=== PATIENT | male | born 1970 | race Caucasian/White ===

== ENCOUNTER 2019-04-05 11:10 | Emergency (ER) | payer MEDICARE ==
[~2019-04-05] VITALS: Ht 203.2 cm; Wt 200.0 kg
[2019-04-05 11:14] VITALS: Ht 203.2 cm; Wt 200.0 kg
[2019-04-05] MEDS ORDERED: STOOL SOFTENER100 M1 PO (11:16)
[2019-04-05] MEDS ORDERED: BETAPACE 80 MG80 MG PO ×2 (11:17→14:02)
[2019-04-05] MEDS ORDERED: UNKNOWN BP MED (11:17)
[2019-04-05 11:49] LABS: BASOPHILS 0.1 % (0-2); EOSINOPHILS 0.1 % (0-7); HEMATOCRIT 40.5 % (42.0-54.0); HEMOGLOBIN 14.8 g/dL (13.5-17.5); IMMATURE GRANULOCYTES 0.5 % (0-5); LYMPHOCYTES 15.1 % (15-50); MCH 30.7 pg (26.0-34.0); MCHC 36.5 g/dL (31.0-37.0); MEAN PLATELET VOLUME 8.7 fL (7.4-10.4); NEUTROPHILS 77.2 % (40-80); PLATELET COUNT 257 10x3/uL (130-400); RBC 4.82 10x6/uL (4.20-6.10); RDW 13.7 % (11.5-14.5); WBC 8.9 10x3/uL (4.8-10.8)
[2019-04-05 12:00] LABS: INR 1.07 (0.85-1.17); PROTIME 13.4 SECONDS (11.6-15.0)
[2019-04-05 12:01] LABS: ALBUMIN 3.9 g/dL (3.4-5.0); ALKALINE PHOSPHATASE 72 U/L (46-116); ALT (SGPT) 21 U/L (10-68); APTT 25.9 SECONDS (22.8-39.4); BILIRUBIN - TOTAL 0.36 mg/dL (0.2-1.3); CALC OSMOLALITY 273 mosm/kg (275-300); CALCIUM 9.7 mg/dL (8.5-10.1); CHLORIDE - SERUM 96 mmol/L (98-107); CREATININE - SERUM 0.9 mg/dL (0.6-1.3); GLUCOSE 120 mg/dL (74-106); POTASSIUM - SERUM 4.1 mmol/L (3.5-5.1); PROTEIN - SERUM 7.7 g/dL (6.4-8.2); SODIUM 136 mmol/L (136-145); UREA NITROGEN 14 mg/dL (7-18); eGFR NON AFRICAN AMERICAN > 90 mL/min (90-120)
[2019-04-05 12:12] LABS: AMYLASE - SERUM 46 U/L (25-115); CKMB 1.1 U/L (0.0-3.6); CREATINE KINASE 62 UL (21-232); LIPASE 144 U/L (73-393); MAGNESIUM - SERUM 1.4 mg/dL (1.8-2.4); TROPONIN-I < 0.017 ng/mL (0.000-0.060)
[2019-04-05 12:27] LABS: APPEARANCE CLEAR (CLEAR); BILIRUBIN NEGATIVE (NEGATIVE); COLOR YELLOW (YELLOW); GLUCOSE NEGATIVE (NEGATIVE); KETONE NEGATIVE (NEGATIVE); NITRITE NEGATIVE (NEGATIVE); PROTEIN NEGATIVE (NEGATIVE); UROBILINOGEN NORMAL (NORMAL)
[2019-04-05] MEDS ORDERED: ATIVAN1 MG PO (13:58)
[2019-04-05] MEDS ORDERED: REGLAN5 MG PO ×2 (13:59→14:00)
[2019-04-05] MEDS ORDERED: CARBATROL100 MG PO (14:00)
[2019-04-05] MEDS ORDERED: ZESTRIL10 MG PO (14:00)
[2019-04-05] MEDS ORDERED: SINGULAIR10 MG PO (14:01)
[2019-04-05] MEDS ORDERED: SEROQUEL50 MG PO (14:01)
[2019-04-05] MEDS ORDERED: PROTONIX40 MG PO (14:01)
[2019-04-05] MEDS ORDERED: PHENERGAN25 MG RC (16:18)
[2019-04-05] MEDS ORDERED: ZOFRAN ODT4 MG/UDTAB PO (16:18)
[2019-04-05 17:27] VITALS: BP 142/87
== END 2019-04-05 17:27 | disposition home or self-care (01) ==
LOC: D.ER 11:10
PROVIDERS: Family Medicine
DX: K31.84 Gastroparesis (principal); F17.210 Nicotine dependence, cigarettes, uncomplicated; F32.9 Major depressive disorder, single episode, unspecified; I48.91 Unspecified atrial fibrillation; I10 Essential (primary) hypertension; K29.70 Gastritis, unspecified, without bleeding; F12.988 Cannabis use, unspecified with other cannabis-induced disorder

== ENCOUNTER 2020-01-23 18:00 | Inpatient (IN) | payer MEDICARE ==
[~2020-01-23] VITALS: Ht 203.2 cm; Wt 195.0 kg
[~2020-01-23 18:00] MED LIST: ATIVAN1 MG PO; BETAPACE 80 MG80 MG PO; CARBATROL100 MG PO; PHENERGAN25 MG RC; PROTONIX40 MG PO; REGLAN5 MG PO; SEROQUEL50 MG PO; SINGULAIR10 MG PO; STOOL SOFTENER100 M1 PO; UNKNOWN BP MED; ZESTRIL10 MG PO; ZOFRAN ODT4 MG/UDTAB PO
[2020-01-23 18:36] VITALS: BP 135/86; BMI 47.3
--- NOTE | 2020-01-23 19:15 | NUR ---
PT LYING IN BED VERY TEARFUL AT THIS TIME. PT IS WORRIED ABOUT DRAIN AND " JUST GETTING A BREATH" HE STATES BEING IN PAIN BUT OUR MEDICATION THAT CHI SENT OVER IS NOT TOUCHING HIS PAIN. ANTON PAGED DR CUNNINGHAM AND LEFT VOICEMAIL CONCERNING PATIENTS NEEDS. BILIARY DRAIN INTACT DRAINING FLUID AT THIS TIME. CL IN REACH. DENIES FURTHER NEEDS AT THIS TIME. WILL CONTINUE TO MONITOR.
[2020-01-23 21:38] VITALS: BP 135/86
--- NOTE | 2020-01-24 02:15 | NUR ---
PT HTML WEB DEVELOPER LIGHT AND STATED HE COULD NOT MAKE IT TO TOILET AND NEEDS BEDPAN. PT PLACED ON BEDPAN. LOOSE WATERY DIARRHEA IN BEDPAN. PT CLEANED UP. DENIES FURTHER NEEDS. CL IN REACH. WCTM
[2020-01-24] MEDS ORDERED: ALBUTEROL SULF8.5 GM INH (02:51)
[2020-01-24] MEDS ORDERED: PRISTIQ100 MG PO (02:51)
[2020-01-24] MEDS ORDERED: VALIUM10 MG PO (02:52)
[2020-01-24] MEDS ORDERED: GABAPENTIN300 MG PO (02:52)
[2020-01-24] MEDS ORDERED: FLORAJEN3 CAPS460 MG PO (02:53)
[2020-01-24] MEDS ORDERED: TORADOL10 MG PO (02:53)
[2020-01-24] MEDS ORDERED: NITROQUICK0.4 MG SL (02:55)
[2020-01-24] MEDS ORDERED: CREON DR 24,001 EACH PO (02:55)
[2020-01-24] MEDS ORDERED: MAG-OX 400 MG400 MG PO (02:55)
[2020-01-24] MEDS ORDERED: PROPRANOLOL HCL20 MG PO (02:56)
[2020-01-24] MEDS ORDERED: ULTRAM50 MG PO (02:56)
[2020-01-24] MEDS ORDERED: ZONISAMIDE50 MG PO (02:57)
--- NOTE | 2020-01-24 04:45 | NUR ---
PT GUIDE DOG TRAINER LIGHT ASSISTED TO BATHROOM. PT STAND BY ASSIST AND PT HAD ANOTHER DIARRHEA. PT BACK IN BED. CL IN REACH. TM
--- NOTE | 2020-01-24 06:01 | NUR ---
FLUSHED BILIARY DRAIN. 200ML EMPTIED
[2020-01-24 08:00] VITALS: BP 123/84
[2020-01-24 09:01] LABS: HEMATOCRIT 37.1 % (42.0-54.0); HEMOGLOBIN 12.5 g/dL (13.5-17.5); LYMPHOCYTES 14.5 % (15-50); MCH 31.2 pg (26.0-34.0); MCHC 33.7 g/dL (31.0-37.0); MCV 92.5 fL (80.0-100.0); MEAN PLATELET VOLUME 8.4 fL (7.4-10.4); NEUTROPHILS 73.1 % (40-80); PLATELET COUNT 248 10x3/uL (130-400); RBC 4.01 10x6/uL (4.20-6.10); RDW 14.9 % (11.5-14.5); WBC 7.4 10x3/uL (4.8-10.8)
[2020-01-24 09:09] LABS: CALC OSMOLALITY 258 mosm/kg (275-300); CALCIUM 9.1 mg/dL (8.5-10.1); CHLORIDE - SERUM 97 mmol/L (98-107); CREATININE - SERUM 0.8 mg/dL (0.6-1.3); GLUCOSE 108 mg/dL (74-106); POTASSIUM - SERUM 4.3 mmol/L (3.5-5.1); SODIUM 129 mmol/L (136-145); UREA NITROGEN 9 mg/dL (7-18); eGFR NON AFRICAN AMERICAN > 90 mL/min (90-120)
--- NOTE | 2020-01-24 12:04 | NUR ---
PATIENT ADMITTED TO REHAB FROM AN OUTSIDE FACILITY. DR. JOSEPH GRAYSON IS HIS PCP. DISCHARGE PLANS ARE FOR HIM TO RETURN HOME WILL CONTINUE TO FOLLOW WITH PATIENT.
[2020-01-24 15:20] VITALS: BMI 47.2
--- NOTE | 2020-01-24 19:15 | NUR ---
BEDSIDE REPORT COMPLETE. PT SITTING UP IN BED WATCHING TV. DENIES ANY NEEDS. C/O ABDOMINAL DISCOMFORT PAIN MEDICATION WAS ADMININSTERED BY DAY SHIFT RN. PANCREATIC DRAIN IN PLACE AND DRAINING. DRESSING INTACT. CALL LIGHT AND WATER WITHIN REACH. FALL PRECAUTIONS IN PLACE. CPOC
[2020-01-24 21:41] VITALS: BP 110/62
--- NOTE | 2020-01-25 02:38 | NUR ---
PT LYING IN BED SUPINE EYES CLOSED RESTING COMFORTABLY. HOB ELEVATED. RR EVEN AND UNLABORED. CALL LIGHT WITHIN REACH. FALL PRECAUTIONS IN PLACE. CPOC
--- NOTE | 2020-01-25 04:50 | NUR ---
REMOVED OLD BILIARY DRAIN DRESSING. CLEANSED AREA WITH WOUND CLEANSER, PAT DRY WITH 4X4, DRAIN GAUZE PLACED AND COVERED WITH TEGADERM. SECURED TUBING WITH TAPE. FLUSHED WITH 10ML NORMAL SALINE. PT TOLERATED WELL
--- NOTE | 2020-01-25 05:38 | NUR ---
PT LYING IN BED EYES CLOSED RESTING. RR EVEN AND UNLABORED. CALL LIGHT AND WATER WITHIN REACH. FALL PRECAUTIONS IN PLACE. CPOC
[2020-01-25 08:00] VITALS: BP 122/82
--- NOTE | 2020-01-25 19:43 | NUR ---
PT UP ON SIDE OF BED EATING DINNER, NO NEEDS NOTED, FLUIDS/CALL LIGHT WITHIN REACH
--- NOTE | 2020-01-26 00:32 | NUR ---
PATIENT REQUESTED TO SPEAK TO THIS CHARGE NURSE AND STATED THAT HE HAD REPORTED TO A NURSE YESTERDAY THAT HIS PAIN WAS NOT CONTROLLED DURING THERAPY, WHEN HE MADE HIS FIRST ATTEMPT TO USE HIS PROSTHETIC LEGS, AND THAT THE NIGHT BEFORE HE HAD PULLED/POPPED HIS BACK. HE SAID THE NURSE INFORMED HIM HE HAD TRAMADOL AND TORODOL PRN BESIDES THE NORCO BUT THAT KNEW THE TORODOL AND TRAMADOL WAS "A PLACEBO" AND INEFFECTIVE. HE ALSO STATED THAT BECAUSE OF HIS LARGE SIZE THAT HE FEELS LIKE HIS DOSE OF NORCO SHOULD BE INCREASED OR THE FREQUENCY INCREASED TO HELP CONTROL HIS PAIN. HE STATED HE DID NOT WANT [facility] BUT IF WE COULD, TO CALL HIM TOMORROW OR MONDAY. MESSAGE LEFT FOR DR CUNNINGHAM ON ROUNDING SHEET AND I WILL CALL HIM LATER THIS AM.
[2020-01-26 12:23] VITALS: BP 102/70
--- NOTE | 2020-01-26 15:00 | NUR ---
I have reviewed this patient and I concur with the Shift Assessment completed by the Licensed Practical Nurse today this shift.
--- NOTE | 2020-01-26 19:35 | NUR ---
RECEIVED PT SITTING UP IN BED AWAKE. ALERT AND ORIENTED X4. RR EVEN AND UNLABORED. BILIARY DRAIN DRESSING C/D/I. NO DRAINAGE IN BAG NOTED. DENIES ANY NEEDS OR PAIN. CALL LIGHT AND WATER WITHIN REACH. FALL PRECAUTIONS IN PLACE. CPOC
[2020-01-26 21:07] VITALS: BP 137/74
--- NOTE | 2020-01-27 00:11 | NUR ---
PT LYING IN BED AWAKE. DENIES ANY NEEDS. GENERALIZED DISCOMFORT VOICED. CALL LIGHT WITHIN REACH. FALL PRECAUTIONS IN PLACE. CPOC
--- NOTE | 2020-01-27 03:20 | NUR ---
PT LYING IN BED EYES CLOSED RESTING. RR EVEN AND UNLABORED. CALLL LIGHT WITHIN REACH. FALL PRECAUTIONS IN PLACE. CPOC
[2020-01-27 06:54] LABS: BASOPHILS 0.8 % (0-2); EOSINOPHILS 5.3 % (0-7); HEMATOCRIT 32.4 % (42.0-54.0); HEMOGLOBIN 10.6 g/dL (13.5-17.5); IMMATURE GRANULOCYTES 0.3 % (0-5); LYMPHOCYTES 25.3 % (15-50); MCH 30.7 pg (26.0-34.0); MCHC 32.7 g/dL (31.0-37.0); MCV 93.9 fL (80.0-100.0); MEAN PLATELET VOLUME 8.7 fL (7.4-10.4); MONOCYTES 17.1 % (2-11); NEUTROPHILS 51.2 % (40-80); RBC 3.45 10x6/uL (4.20-6.10); RDW 14.9 % (11.5-14.5)
[2020-01-27 06:55] LABS: PLATELET COUNT 193 10x3/uL (130-400)
[2020-01-27 07:16] LABS: ALKALINE PHOSPHATASE 60 U/L (30-120); ALT (SGPT) 16 U/L (10-68); AMYLASE - SERUM 27 U/L (25-115); BILIRUBIN - TOTAL 0.39 mg/dL (0.2-1.3); CALC OSMOLALITY 261 mosm/kg (275-300); CALCIUM 8.9 mg/dL (8.5-10.1); CARBON DIOXIDE 27.8 mmol/L (21.0-32.0); CHLORIDE - SERUM 99 mmol/L (98-107); CREATININE - SERUM 0.9 mg/dL (0.6-1.3); GLUCOSE 96 mg/dL (74-106); LIPASE 95 U/L (73-393); POTASSIUM - SERUM 3.9 mmol/L (3.5-5.1); PROTEIN - SERUM 6.3 g/dL (6.4-8.2); SODIUM 131 mmol/L (136-145); UREA NITROGEN 11 mg/dL (7-18); eGFR NON AFRICAN AMERICAN > 90 mL/min (90-120)
[2020-01-27 08:00] VITALS: BP 115/74
--- NOTE | 2020-01-27 08:04 | NUR ---
AWAKE AND ALERT UP IN BED, DENIES ANY NEEDS AT THIS TIME, C/L AND FLUIDS IN REACH.
--- NOTE | 2020-01-27 10:00 | NUR ---
ASSESSMENT COMPLETE, PRN PAIN MED GIVEN, DENEIS ANY OTHER NEEDS AT THIS TIME, C/L AND FLUIDS IN REACH.
--- NOTE | 2020-01-27 12:01 | NUR ---
UP IN W/C JUST FINISHED THERAPY, DENIES ANY NEEDS AT THIS TIME, C/L AND FLUIDS IN REACH.
--- NOTE | 2020-01-27 16:17 | NUR ---
SITTING UP IN BED WATCHING TV, PRN PAIN MED GIVEN PER PT. REQUEST, DENIES ANY OTHER NEEDS AT THIS TIME, C/L AND FLUIDS IN REACH.
--- NOTE | 2020-01-27 19:10 | NUR ---
PT SITTING UP IN BED EATING DINNER. CL IN REACH. DENIES NEEDS AT THIS TIME. BED IN LOW SIDE RAILS X3. LUNGS CLEAR. BOWEL ACTIVE X4. RESP EVEN AND UNLABORED. A/O X4. WILL CONTINUE TO MONITOR.
[2020-01-27 21:38] VITALS: BP 126/82
--- NOTE | 2020-01-28 07:57 | NUR ---
SITTING UP IN BED WATCHING TV, DENIES ANY NEEDS AT THIS TIME, C/L AND FLUIDS IN REACH.
[2020-01-28 08:18] VITALS: BP 125/86
--- NOTE | 2020-01-28 08:54 | RHP ---
PATIENT: ELIAS BOWEN MEDICAL RECORD: [id number] ACCOUNT: [id number] LOCATION:[facility]1112 : 66 ADMISSION DATE: 01/23/20 REHABILITATION HISTORY AND PHYSICAL EXAMINATION POST ADMISSION PHYSICIAN EXAMINATION ADMITTING DIAGNOSES: Debility secondary to muscular wasting and disuse atrophy, also needing bilateral [id number] amputated prosthetic training. HISTORY OF PRESENT ILLNESS: The patient is a 49-year-old gentleman who presented to ED with abdominal pain that radiated to his back, complaints of nausea, vomiting, and diarrhea that worsened over the previous week. He was admitted to the hospital on 01/12. He had abdominal CT that showed development of a 6.2 cm inoculated fluid collection at the left paracentral retroperitoneal area of his upper abdomen concerning for early abscess or possible pseudocyst. The patient also had some pancreatic fluid collection that was compatible with acute pancreatitis; however, consult was done, a left IR drain was placed in the CT in the peripancreatic region. On 01/12, he has been on IV antibiotics therapy with Merrem that will stay on until 01/16. The patient has a history of depression, degenerative joint disease, headaches, MRSA, rheumatoid arthritis, sleep apnea, chronic alcohol abuse, tobacco use. The patient has had bilateral BKAs. The patient apparently needs to be monitored very closely with IR for the drain and any signs of infection. He has got medication adjustments, we are monitoring his heart since he got a history of chronic atrial fibrillation. We are also watching his pain control, monitoring his I's and O's. He has got weakness, balance deficits, decreased activity tolerance, impaired mobility, decreased range of motion, decreased strength, gait disturbance, limited safety awareness. He is a risk for falls, he needs cues for equipment, he has got low endurance. He fatigues easily. Got inability to care for himself. These are all barriers to his discharge home at this time. He lives at home, was independent with his ADLs and mobility, using a wheelchair since getting his new prosthesis. He has got inability to properly those at this time. Currently set up for mod assist for ADLs and mod assist with his mobility and transfer into a chair. He plans to be able to return home at his prior level of functioning or better. COMORBIDITIES: Include weakness, abscess, IR drain, vwtmc-tj-mtzlbol pancreatitis, hyponatremia, hypomagnesemia, acute abdominal pain, chronic alcohol use, chronic AFib, hyperlipidemia, anxiety, depression, sleep apnea, rheumatoid arthritis, bilateral BKAs, history of head injury and tobacco use. PAST MEDICAL HISTORY: Significant for anxiety, arrhythmias, depression, degenerative joint disease, he has got a head injury in the past, headaches, hypertension, MRSA, sleep apnea, chronic alcohol use, VRE, tobacco use. PAST SURGICAL HISTORY: Includes bilateral BKAs, left hand surgery, elbow surgery, knee surgery and upper arm surgery. ALLERGIES: No known drug allergies. CURRENT MEDICATIONS: Include Floranex daily, he is on Zonegran 25 mg daily, he is on propranolol 20 mg daily, lisinopril 5 mg daily, Pristiq 100 mg daily, Zenpep 3 capsules t.i.d. with meals, Protonix 40 mg daily, sotalol 80 mg b.i.d., Mag-Ox 400 mg b.i.d., Neurontin 300 mg t.i.d., Tegretol 100 mg b.i.d. of the XR, tramadol 50 mg every 6 hours, Nitrostat p.r.n., albuterol updrafts as needed, HISTORY AND PHYSICAL [id number] ELIAS BOWEN Toradol 10 mg every 8 hours p.r.n. and Valium 10 mg every 8 hours p.r.n. spasms or problems. HABITS: No current alcohol or tobacco use here in the hospital. He does have a history of tobacco use and alcohol use at home. FAMILY HISTORY: Noncontributory. SOCIAL HISTORY: The patient hopes to return back home and get back to his prior level of functioning. REVIEW OF SYSTEMS: GENERAL: Does complain of weakness and fatigue. HEENT: Denies cold, cough, or congestion. CARDIOVASCULAR: Denies any chest pain. PHYSICAL EXAMINATION: VITAL SIGNS: Stable, afebrile. GENERAL: A morbidly obese gentleman in no acute distress upon exam. HEENT: Normocephalic and atraumatic. Mucosa moist. NECK: Supple. No lymphadenopathy. LUNGS: Clear at this time in upper mck[place]. HEART: Irregular rate and rhythm. ABDOMEN: Soft, benign, and nondistended. Positive bowel sounds times 4. EXTREMITIES: No clubbing, cyanosis. He does have noted bilateral below the knee amputations. NEUROLOGIC: Does have noted weakness. LABORATORY DATA: White count is 7.4, H&H of 12 and 37, and platelet count was noted to be 248. Sodium 129, potassium 4.3, BUN and creatinine of 9 and 0.8. Blood sugar is noted to be 108. ASSESSMENT: This is a 49-year-old gentleman admitted to the rehab with a working diagnosis of debility. The patient has potential to make improvement. We instituted the following multidisciplinary therapies include, but not limited to physical, occupational, respiratory, speech, nutritional services, prosthetics and orthotics. Given his complex medical condition and risks for more complications, rehabilitation services cannot be provided at a low level of care such as fpc facility. PLAN: 1. Admit to [facility] for inpatient therapy to include the following disciplines; A. Physical therapy to improve gait, all transfer skills and bed mobility to a modified independent level. B. Occupational therapy to improve activities of daily living. C. Case management help with discharge planning and placement options. D. Nutrition to assist with nutritional needs. E. Rehabilitation nursing to assist in monitoring the patient's underlying medical conditions and to assist with any type of bowel or bladder training. 2. We will continue on current medications as prescribed and I am going to watch his sodium level, we will adjust his lisinopril is needed. We follow up on his amylase and lipase, make sure no development of pancreatitis during his stay and I will see again in the a.m. HISTORY AND PHYSICAL [id number] BETTYKellyAlycia TRANSINT:[id number] Voice Confirmation ID: [id number] DOCUMENT ID: [id number] JESSICA notes whether there has been none or any medical/functional change since admission: - Pt's weight is 430#, Morbidly Obese. JESSICA attests patient continues to be appropriate for IRF: - Continues to be appropriate. JOB CUNNINGHAM MD at 0854 CC: [id number] DICTATION DATE: 01/24/20927 [employer]ILERS AND PRESS[employer] VESSELS INSPECTOR: 01/24/[address] [facility] [address] [place] [address]
--- NOTE | 2020-01-28 09:15 | NUR ---
ASSESSMENT COMPLETE, C/L AND FLUIDS IN REACH.
--- NOTE | 2020-01-28 11:06 | NUR ---
NUTRITION FOLLOW UP: INTERVIEW: Met with patient this am. He stated his appetite has been good. He denied recent N/V/D/C and denied recent chewing/swallowing issues. DIET: Regular Diet SUPPLEMENT: None PO INTAKE: 72% avg x 8 meals WEIGHT: 430 lbs on 01/23 with no recent wt changes BM: Stated BM this am (01/27) SIG LABS: 01/26- Na: 131(L), Albumin: 3.0(L) SIG MEDS: Protonix, Mag Ox Patient has been eating well. RD to continue to follow and monitor patient DHS
--- NOTE | 2020-01-28 12:11 | NUR ---
UP IN W/C BACK FROM THERAPY, DENIES ANY NEEDS AT THIS TIME, C/L AND FLUIDS IN REACH.
--- NOTE | 2020-01-28 16:19 | NUR ---
UP IN W/C, DENIES ANY NEEDS AT THIS TIME, C/L AND FLUIDS IN REACH.
--- NOTE | 2020-01-28 20:07 | NUR ---
RECIEVED BEDSIDE SHIFT REPORT. ALERT AND ORIENTED X4. UP WITH ASSIST. PROSTESIS AT BEDSIDE. OLD DBL BKA. BILLARY DRAIN IN PLACE WITH OFF WHITE DRAINAGE IN BAG. DENIES ANY NEEDS AT THIS TIME.
[2020-01-28 21:50] VITALS: BP 125/77
[2020-01-29 08:20] VITALS: BP 138/91
[2020-01-29 09:08] LABS: BASOPHILS 0.8 % (0-2); EOSINOPHILS 5.2 % (0-7); HEMATOCRIT 32.9 % (42.0-54.0); HEMOGLOBIN 10.7 g/dL (13.5-17.5); IMMATURE GRANULOCYTES 0.3 % (0-5); LYMPHOCYTES 14.9 % (15-50); MCH 30.7 pg (26.0-34.0); MCHC 32.5 g/dL (31.0-37.0); MCV 94.3 fL (80.0-100.0); MEAN PLATELET VOLUME 8.8 fL (7.4-10.4); MONOCYTES 11.4 % (2-11); NEUTROPHILS 67.4 % (40-80); PLATELET COUNT 222 10x3/uL (130-400); RBC 3.49 10x6/uL (4.20-6.10); RDW 14.6 % (11.5-14.5)
[2020-01-29 09:12] LABS: CALC OSMOLALITY 261 mosm/kg (275-300); CALCIUM 9.3 mg/dL (8.5-10.1); CARBON DIOXIDE 24.5 mmol/L (21.0-32.0); CHLORIDE - SERUM 99 mmol/L (98-107); CREATININE - SERUM 0.8 mg/dL (0.6-1.3); GLUCOSE 106 mg/dL (74-106); POTASSIUM - SERUM 4.2 mmol/L (3.5-5.1); SODIUM 131 mmol/L (136-145); UREA NITROGEN 9 mg/dL (7-18); eGFR NON AFRICAN AMERICAN > 90 mL/min (90-120)
--- NOTE | 2020-01-29 19:39 | NUR ---
PATIENT RECEIVED SITTING UP IN BED. ASSESSMENT & VITAL SIGNS DONE. BILI DRAIN GEEN COLOR DRAINAGE. NO C/O PAIN OR DISTRESS. BED LOW. CALL LIGHT WITHIN REACH. WILL CONTINUE TO MONITOR.
[2020-01-29 21:42] VITALS: BP 115/80
--- NOTE | 2020-01-30 02:46 | NUR ---
PATIENT AWAKE. BILI DRAIN FLUSHED WITH 10 CC OF NS. PATIENT TOLERATED IT WELL. BED LOW. CALL LIGHT WITHIN REACH. WILL CONTINUE TO MONITOR.
--- NOTE | 2020-01-30 02:53 | NUR ---
I have reviewed this patient and I concur with the Shift Assessment completed by the Licensed Practical Nurse today this shift.
[2020-01-30 08:00] VITALS: BP 122/58
--- NOTE | 2020-01-30 15:31 | NUR ---
CARE TEAM MEETING: PATIENT ATTENDED THE MEETING , HE WOULD LIKE TO STAY HERE UNTIL HIS PROTHESISES IS ADJUSTED SO HE CAN AMBULATE SAFELY. WILL CONTINUE TO FOLLOW WITH PATIENT. I
--- NOTE | 2020-01-30 20:00 | NUR ---
PATIENT RECEIVED SITTING UP IN BED. ASSESSMENT & VITAL SIGNS DONE. BED LOW. CALL LIGHT & URINALS WITHIN REACH. WILL CONTINUE TO MONITOR.
[2020-01-30 21:45] VITALS: BP 132/74
--- NOTE | 2020-01-31 02:50 | NUR ---
I have reviewed this patient and I concur with the Shift Assessment completed by the Licensed Practical Nurse today this shift.
[2020-01-31 05:57] LABS: BASOPHILS 0.2 % (0-2); EOSINOPHILS 3.6 % (0-7); HEMATOCRIT 31.7 % (42.0-54.0); HEMOGLOBIN 10.1 g/dL (13.5-17.5); IMMATURE GRANULOCYTES 0.1 % (0-5); LYMPHOCYTES 13.1 % (15-50); MCH 30.3 pg (26.0-34.0); MCHC 31.9 g/dL (31.0-37.0); MCV 95.2 fL (80.0-100.0); MEAN PLATELET VOLUME 8.8 fL (7.4-10.4); MONOCYTES 13.5 % (2-11); NEUTROPHILS 69.5 % (40-80); PLATELET COUNT 244 10x3/uL (130-400); RBC 3.33 10x6/uL (4.20-6.10); RDW 14.8 % (11.5-14.5)
[2020-01-31 06:06] LABS: CALC OSMOLALITY 264 mosm/kg (275-300); CALCIUM 8.9 mg/dL (8.5-10.1); CARBON DIOXIDE 27.4 mmol/L (21.0-32.0); CHLORIDE - SERUM 99 mmol/L (98-107); CREATININE - SERUM 0.8 mg/dL (0.6-1.3); GLUCOSE 99 mg/dL (74-106); POTASSIUM - SERUM 4.2 mmol/L (3.5-5.1); SODIUM 133 mmol/L (136-145); UREA NITROGEN 11 mg/dL (7-18); WBC 8.7 10x3/uL (4.8-10.8); eGFR NON AFRICAN AMERICAN > 90 mL/min (90-120)
--- NOTE | 2020-01-31 07:30 | NUR ---
A/A/OX4. STATES HE IS HAVING A LOT OF PAIN AT THIS TIME BUT DECLINED OFFER OF PAIN MED. WILL CALL WHEN HE WANT TO TAKE IT. NO OTHER C/O OR REQUESTS. CALL LIGHT IN REACH AND BED IN LOW LOCKED POSITION. WILL CONTINUE POC
[2020-01-31 08:00] VITALS: BP 122/89
--- NOTE | 2020-01-31 12:33 | NUR ---
PT IS REQUESTING A CULTURE BE DONE ON BILIARY DRAINAGE DUE TO CHANGE FROM CLEAR LIGHT COLORED LIQUID TO THICK YELLOW DRAINAGE. CLUTURE OBTAINED AND TAKEN TO LAB.
--- NOTE | 2020-02-01 00:48 | NUR ---
191) REC'D CHGE OF SHIFT SITTING UP IN MIDDLE OF BED. ANGRY STILL STATES BECAUSE THEY SHOULD HAVE TAKEN CULTUE ON BILARY DRAIN SITE.INSTEAD OF OUT OF THE BAG ITSELF/ WILL CONTINE TO MONITOR FOR ANY CHGES.AND FOLLOW CURRENT PLAN OF CARE
--- NOTE | 2020-02-01 08:23 | NUR ---
SITTING UP IN BED AND C/O NO SLEEP LAST NIGHT. IS WANTING TO BE DISCHARGED AND TOLD HIM DR. CUNNINGHAM WOULD BE ADVISED OF THIS WHEN HE COMES IN THIS MORNING. NO OTHER REQUESTS VOICED. WILL CONTINUE POC.
[2020-02-01 12:24] VITALS: BP 134/76
--- NOTE | 2020-02-01 19:18 | NUR ---
RECEIVED PT SITTING UP IN BED. ALERT AND ORIENED X4. DENIES ANY NEEDS. C/O GENERALIZED DISCOMFORT. LUQ DRAIN INTACT. NO DRAINAGE IN BAG NOTED. CALL LIGHT AND WATER WITHIN REACH. FALL PRECAUTIONS IN PLACE. CPOC
[2020-02-01 20:32] VITALS: BP 122/73
--- NOTE | 2020-02-02 03:07 | NUR ---
PT LYING IN BED EYES CLOSED RESTING COMFORTABLY. RR EVEN AND UNLABORED. CALL LIGHT WITHIN REACH. FALL PRECAUTIONS IN PLACE. CPOC
--- NOTE | 2020-02-02 08:26 | NUR ---
PT SITTING UP IN BED. HE IS VERY TEARFUL AND UPSET STATING HE JUST FEELS LIKE SOMETHING BAD IS ABOUT TO HAPPEN AND HE JUST FEELS TERRIBLE. C/O PAIN IN ABDOMEN AND HAS BEEN MEDICATED WITH OXYCODONE 15 MG IR WITH VERY LITTLE RELIEF OF GENERALIZED PAIN IN JOINTS. BILIDRAIN IN PLACE WITH SMALL AMT LIGHT GREENISH THICK DRAINAGE.
[2020-02-02 10:47] VITALS: BP 124/76
--- NOTE | 2020-02-02 16:50 | NUR ---
TEMP IS 101.2 ORAL. TYLEONL GIVEN PO AND CALL PUT IN TO DR. CUNNINGHAM TO INFORM HIM OF THIS AND ALSO THE CULTURE REPORT. LEFT MSG.
--- NOTE | 2020-02-02 18:37 | NUR ---
TEMP NOW DOWN TO 99.9. STILL NO CALL FROM DR. CUNNINGHAM.
[2020-02-02 18:50] VITALS: BP 115/55
--- NOTE | 2020-02-02 18:50 | NUR ---
RECEIVED PT SITTING UP IN BED AWAKE. ALERT AND ORIENTED X4. C/O ABDOMNIAL DISCOMFORT "BURNING SHARP PAIN" ABDOMINAL TIGHTNESS AND SWELLING NOTED. GREENISH COLORED DRAINAGE NOTED IN DRAIN BAG FROM BILIARY DRAIN. VS STABLE. LOW TEMP 100.0 ORALLY NOTED. TYLENOL GIVEN BY DAY SHIFT NURSE APPROX 2 HOURS AGO. PT DENIES ANY OTHER NEEDS. SHIFT ASSESSMENT COMPLETED. NO SIGNS OF ACUTE DISTRESS NOTED. CALL LIGHT AND WATER WITHIN REACH. FALL PRECAUTIONS IN PLACE. CPOC
--- NOTE | 2020-02-02 23:30 | NUR ---
REMOVED OLD DRESSING FROM BILIARY DRAIN. SUTURE NO LONGER INTACT. YELLOW/GREEN DRAINAGE NOTED ON OLD DRESSING. YELLOW DISCHARGE FROM SITE NOTED. CLEANSED DRAIN SITE WITH WOUND CLEANSER, PATTED DRY WITH 4X4, COVERED WITH DRAIN GAUZE AND SECURED WITH MEDIPORE TAPE. SECURED DRAIN TUBING WITH MEDIPORE TAPE WELL. PT TOLERATED WELL. FLUSHED DRAIN WITH 10ML NORMAL SALINE.
--- NOTE | 2020-02-03 02:37 | NUR ---
PT LYING IN BED EYES CLOSED RESTING. HOB ELEVATED. RR EVEN AND UNLABORED. CALL LIGHT AND WATER WITHIN REACH. FALL PRECAUTIONS IN PLACE. CPOC
--- NOTE | 2020-02-03 04:40 | NUR ---
PT LYING IN BED EYES CLOSED RESTING. RR EVEN AND UNLABORED. CALL LIGHT WITHIN REACH. FALL PRECAUTIONS IN PLACE. CPOC
[2020-02-03 08:06] LABS: BASOPHILS 0.1 % (0-2); HEMATOCRIT 30.6 % (42.0-54.0); HEMOGLOBIN 10.1 g/dL (13.5-17.5); IMMATURE GRANULOCYTES 0.3 % (0-5); LYMPHOCYTES 8.7 % (15-50); MCH 30.5 pg (26.0-34.0); MCV 92.4 fL (80.0-100.0); MEAN PLATELET VOLUME 8.6 fL (7.4-10.4); MONOCYTES 14.3 % (2-11); NEUTROPHILS 74.6 % (40-80); PLATELET COUNT 255 10x3/uL (130-400); RBC 3.31 10x6/uL (4.20-6.10); RDW 14.3 % (11.5-14.5); WBC 12.7 10x3/uL (4.8-10.8)
[2020-02-03 08:19] LABS: CALC OSMOLALITY 252 mosm/kg (275-300); CALCIUM 8.6 mg/dL (8.5-10.1); CARBON DIOXIDE 26.4 mmol/L (21.0-32.0); CHLORIDE - SERUM 91 mmol/L (98-107); CREATININE - SERUM 0.8 mg/dL (0.6-1.3); GLUCOSE 128 mg/dL (74-106); POTASSIUM - SERUM 4.4 mmol/L (3.5-5.1); SODIUM 125 mmol/L (136-145); UREA NITROGEN 9 mg/dL (7-18); eGFR NON AFRICAN AMERICAN > 90 mL/min (90-120)
--- NOTE | 2020-02-03 08:42 | NUR ---
ALERT KEVON ORIENTED. CT ABD TODAY.
[2020-02-03 08:46] VITALS: BP 140/82
--- NOTE | 2020-02-03 10:50 | NUR ---
FAXED CT ABD REPORT TO DR BUTTS OFFICE. CALLED OFFICE THAT REPORT WAS SENT.
--- NOTE | 2020-02-03 13:04 | NUR ---
MOTHER AT BS. FLUSHED ABD DRAIN. SPOKE WITH DR CUNNINGHAM RE CT ABD RESULTS. CONSULT FOR DR ARELLANO. DR HOLDER ENDOSCOPY TECHNICAN.
--- NOTE | 2020-02-03 13:18 | NUR ---
Nutrition Follow-up: Chart reviewed. "Patient having fever and abdominal distention and drainage consistent with pseudomonal aerogenosa."- per MD notes Diet: Regular PO intake: ~61% x last 7 meals, patient was visably upset, mother and RN at bedside during time of RD rounding. Interview deferred at this time. Noted that PO intake has decreased as patient is not feeling well lately. Last BM: 01/30/20. WT: 430# (01/24/20), no new weight Meds reviewed. Labs noted: Glu 128(H). Recommend continue current diet. Will add Ensure TID while PO intake is down. RD following.
[2020-02-03] MEDS ORDERED: LISINOPRIL5 MG PO (16:00)
[2020-02-03] MEDS ORDERED: ACETAMINOPHEN325 MG PO (16:03)
[2020-02-03] MEDS ORDERED: LEVOFLOXACIN500 MG PO (16:04)
[2020-02-03] MEDS ORDERED: MAG-OX 400 MG400 MG PO (16:05)
[2020-02-03] MEDS ORDERED: FLORAJEN3 CAPS460 MG PO (16:08)
[2020-02-03] MEDS ORDERED: ALBUTEROL2.5 MG/3 M INH (16:11)
[2020-02-03] MEDS ORDERED: OXYCODONE HCL5 M1 PO (16:35)
[2020-02-03] MEDS ORDERED: TEMAZEPAM30 MG PO (16:35)
[2020-02-03] MEDS ORDERED: ZENPEP PO (16:37)
--- NOTE | 2020-02-03 17:51 | NUR ---
DC TO ACUTE FOR FURTHER MEDICAL. ABD ISSUES/BILIARY DRAIN. ADMIT TO DR CUNNINGHAM.
--- NOTE | 2020-02-03 20:23 | NUR ---
AWAKE AND ALERT. RESTING IN BED. RESPIRATIONS UNLABORED. WAITING ON DISCHARGE TO BE ABLE TO GO TO MEDICAL FLOOR. MOOD MILDY AGITATED CONCERNING BILI DRAIN BEING CLOGGED. MEDICATED FOR PAIN. SEE MAR. CALL LIGHT IN REACH.
[2020-02-03 21:40] VITALS: BP 115/52
--- NOTE | 2020-02-03 23:59 | NUR ---
MEDICATED FOR C/O ANXIETY WITH VALIUM 10MG PO AND C/O PAIN IN ABDOMEN AT DRAIN SITE WITH OXYCODONE 15MG PO. WILL CONTINUE TO MONITOR.
--- NOTE | 2020-02-04 01:40 | NUR ---
PATIENT CALLED ME TO ROOM AND ASK THAT I SEE HIS ABOMEN AND DOCUMENT IT. NOTED ABDOMEN LARGE, DISTENED AND TIGHT. HE STATES HE THINKS IT IS THE FLUID FROM THE DRAIN BACKING UP. NO ROOM FOR THE MEDICAL FLOOR HAS BECOME AVAILABLE YET. PATIENT STATES HIS ABDOMEN IS VERY PAINFUL. I NOTIFED ИВАН THE TIRE AND LUBE TECHNICIAN AND SHE STATED THE MEDICAL FLOORS ARE FULL. SHE STATED HE COULD BE MOVED IN THE MORNING WHEN A PATIENT FROM THE MEDICAL FLOOR WAS TRANSFERED DOWN TO REHAB. TIRE AND LUBE TECHNICIAN SAID IF I CONTINUED TO BE CONCERNED I COULD CALL THE DOCTOR. I ASSURED HER I WOULD MONITOR PATIENT CLOSELY. PATIENT STATES HE COULD WAIT UNTIL AM BUT JUST WANTED SOMEONE TO NOTE AND DOCUMENT HIS ABDOMEN.
--- NOTE | 2020-02-04 02:07 | NUR ---
EXPLAINED TO PATIENT DISCUSSION WITH RAILWAY PATROL OFFICER. HE VOICES UNDERSTANDING. HE STATES HE CAN WAIT TO MOVE TO MEDICAL FLOOR IN THE AM. HE SAID "IT JUST HURTS". WARM CLOTH LAID OVER AREA OF ABDOMEN THAT IS PAINFUL. BOWEL SOUNDS AUSCULTATED AND BOWEL SOUNDS ACTIVE IN UPPER AND LOWER RIGHT QUADRANTS, SLUGGISH IN LEFT UPPER AND LOWER QUADRANTS. WILL CONTINUE TO MONITOR.
--- NOTE | 2020-02-04 04:09 | NUR ---
SITTING UP IN BED HOLDING ABDOMEN. STATES HE IS STILL HAVING PAIN. MEDICATED WITH OXYCODONE 15MG PO. SEE MAR. RESPIRATIONS UNLABORED. CALL LIGHT IN REACH.
--- NOTE | 2020-02-04 05:33 | NUR ---
SOME PAIN RELIEF NOW. RESTING QUIETLY IN BED.
[2020-02-04 08:00] VITALS: BP 126/81
--- NOTE | 2020-02-04 08:00 | NUR ---
SITTING UP IN BED WATCHING TV, DENIES ANY NEEDS AT THIS TIME, C/L AND FLUIDS IN REACH.
[2020-02-04 08:36] VITALS: Ht 203.2 cm; Wt 195.0 kg
[2020-02-04 08:56] LABS: BASOPHILS 0.1 % (0-2); EOSINOPHILS 1.1 % (0-7); HEMATOCRIT 29.6 % (42.0-54.0); HEMOGLOBIN 9.8 g/dL (13.5-17.5); IMMATURE GRANULOCYTES 0.4 % (0-5); LYMPHOCYTES 5.8 % (15-50); MCH 30.4 pg (26.0-34.0); MCHC 33.1 g/dL (31.0-37.0); MCV 91.9 fL (80.0-100.0); MEAN PLATELET VOLUME 8.5 fL (7.4-10.4); MONOCYTES 14.1 % (2-11); NEUTROPHILS 78.5 % (40-80); PLATELET COUNT 248 10x3/uL (130-400); RBC 3.22 10x6/uL (4.20-6.10); RDW 14.3 % (11.5-14.5); WBC 12.4 10x3/uL (4.8-10.8)
[2020-02-04 09:28] LABS: CALC OSMOLALITY 250 mosm/kg (275-300); CALCIUM 9.1 mg/dL (8.5-10.1); CARBON DIOXIDE 26.1 mmol/L (21.0-32.0); CHLORIDE - SERUM 92 mmol/L (98-107); CREATININE - SERUM 0.8 mg/dL (0.6-1.3); GLUCOSE 135 mg/dL (74-106); POTASSIUM - SERUM 4.8 mmol/L (3.5-5.1); SODIUM 124 mmol/L (136-145); UREA NITROGEN 10 mg/dL (7-18); eGFR NON AFRICAN AMERICAN > 90 mL/min (90-120)
--- NOTE | 2020-02-04 12:00 | NUR ---
SITTING UP IN BED, DENIES ANY NEEDS AT THIS TIME, C/L IN REACH.
--- NOTE | 2020-02-04 12:26 | NUR ---
I have reviewed this patient and I concur with the Shift Assessment completed by the Licensed Practical Nurse today this shift.
[2020-02-04] MEDS ORDERED: MERREM 1 GM/NS 11 G1 IV (12:51)
--- NOTE | 2020-02-04 16:25 | NUR ---
SITTING UP IN BED VISITING WITH FAMILY, DENIES ANY NEEDS AT THIS TIME, C/L IN REACH.
--- NOTE | 2020-02-04 19:20 | NUR ---
PT. D/C TO MED/SURG ROOM 2201 VIA BED, ALL BELONGINGS WITH PATIENT, REPORT GIVEN AND PAPERWORK SENT WITH PATIENT.
== END 2020-02-04 19:21 | disposition short-term general hospital (02) | DRG 557 ==
LOC: D.REHAB 18:00
PROVIDERS: ADMIT Emergency Medicine; ATTEND Emergency Medicine
DX: M62.50 Muscle wasting and atrophy, not elsewhere classified, unspecified site (principal); K85.90 Acute pancreatitis without necrosis or infection, unspecified; L02.211 Cutaneous abscess of abdominal wall; E87.1 Hypo-osmolality and hyponatremia; I48.20 Chronic atrial fibrillation, unspecified; R53.81 Other malaise; F32.9 Major depressive disorder, single episode, unspecified; M19.90 Unspecified osteoarthritis, unspecified site; R51 Headache; M06.9 Rheumatoid arthritis, unspecified; G47.30 Sleep apnea, unspecified; F10.10 Alcohol abuse, uncomplicated; F17.200 Nicotine dependence, unspecified, uncomplicated; E78.5 Hyperlipidemia, unspecified; F41.8 Other specified anxiety disorders; E83.42 Hypomagnesemia; R53.1 Weakness

== ENCOUNTER 2020-02-04 14:34 | Inpatient (IN) | payer MEDICARE ==
[~2020-02-04] VITALS: Ht 203.2 cm; Wt 205.0 kg
--- NOTE | ~2020-02-04 | HEMODYNAMI ---
PATIENT:ELIAS BOWEN MEDICAL RECORD: [id number] : 66 LOCATION:D.MS [id number] ADMISSION DATE: 02/04/20 Generatedon:02/06/202010:26 Patient name: ELIAS BOWEN Patient #: [id number] SSN: : Date of study: 02/06/2020 Page: Of Hemodynamic Procedure Report Patient Data Patient Demographics Procedure consent was obtained First Name: ELIAS Gender: Male Last Name: ANDRÉS : 1970 Patient #: [id number] Age: 49 year(s) Race: Unknown Additional ID: [id number] Contact details [address]: [address] [place] [address] DRIVE State: [place] City: [facility] Zip code: [address] Admission Admission Data Admission Date: 02/04/2020 Admission Time: 19:41 Room #: [id number] Procedure Procedure Types Cath Procedure Peripheral Cath Diagnostic Procedure Abscess Procedure Description Procedure Date Procedure Date: 02/06/2020 Procedure Start Time: 9:55 Procedure Staff Name Function Annabelle Astorga MD Performing Physician Charlie Earl RT Monitor Elfego MAHAJAN RN Nurse Procedure Data Cath Procedure Fluoroscopy Diagnostic fluoroscopy Total fluoroscopy Time: time: 11.4 min 11.4 min Diagnostic fluoroscopy Total fluoroscopy dose: 721 dose: 721 mGy mGy Contrast Material Contrast Material Type Amount (ml) Isovue 300 40 Diagnostic catheters Device Type Used For End Catheter Placement Merit Impress KA2 5Fr 65CM catheter ([id number]) Procedure Medications Medication Administration Route Dosage Versed I.V. 1 mg Fentanyl I.V. 25 mcg Lidocaine 1% added to field 20 Heparin Flush Bag added to field 1 bags (1000units/500ml NS) Fentanyl I.V. 50 mcg Versed I.V. 1 mg Hemodynamics Rest Heart Rate: 80 (bpm) Snapshots Pre Cath Intra NCS Post Cath Vital Signs Time Heart Resp SPO2 etCO2 NIBP (mmHg) Rhythm Pain Sedation Rate (ipm) (%) (mmHg) Status Level (bpm) 9:39:15 78 12 20.2 Measuring NSR 0 (11) 9(A) , No pain 9:39:25 79 28 89 41.2 101/51(69) NSR 0 (11) 9(A) , No pain 9:44:24 79 14 100 35.2 Measuring NSR 0 (11) 9(A) , No pain 9:44:30 79 15 100 41.2 107/48(76) NSR 0 (11) 9(A) , No pain 9:48:36 80 21 30.7 100/48(73) NSR 0 (11) 9(A) , No pain 9:52:44 79 8 98 23.9 101/55(85) NSR 0 (11) 9(A) , No pain 9:56:43 79 13 99 0 109/65(83) NSR 0 (11) 9(A) , No pain 10:00:49 82 11 19.4 124/69(99) NSR 0 (11) 9(A) , No pain 10:04:55 81 11 42.7 125/81(91) NSR 0 (11) 9(A) , No pain 10:09:05 81 15 0 132/77(90) NSR 0 (11) 9(A) , No pain 10:13:19 80 15 14.9 143/76(97) NSR 0 (11) 9(A) , No pain 10:17:33 82 8 25.4 151/82(123) NSR 0 (11) 9(A) , No pain 10:21:33 0 No Cuff NSR 0 (11) 9(A) , No pain Medications Time Medication Route Dose Verified Delivered Reason Notes Effec tiveness by by 9:54:30 Versed I.V. 1 mg M J Long Minner for MD KEYSHAWN sedation RN 9:54:39 Fentanyl I.V. 25 M J Long Minner for mcg MD KEYSHAWN sedation RN 9:54:50 Lidocaine 1% added 20ml M J Long Minner used for to vial MD KEYSHAWN procedure field RN 9:55:08 Heparin Flush added 1 M J Long Minner used for Bag to bags MD KEYSHAWN procedure (1000units/500ml field RN NS) 9:59:16 Fentanyl I.V. 50 M J Long Minner for mcg MD KEYSHAWN sedation RN 10:02:23 Versed I.V. 1 mg Annabelle Telles for MD MAHAJAN sedation radar repairer Log Time Note 9:14:27 Charlie Mady RT (R) (CV) sent for patient. Start room use. 9:14:46 Time tracking: Regular hours (M-F 7:00 - 5:00) 9:14:51 Plan of Care:Hemodynamics will remain stable., Cardiac rhythm will remain stable., Comfort level will be maintained., Respiratory function will remain adequate., Patient/ family verbilizes understanding of procedure., Procedure tolerated without complication., Recovers from procedure without complications.. 9:15:08 Patient received from Med/Surg to IR Alert and oriented. Tansferred to table in Supine position. 9:15:11 Signed procedure consent form obtained from patient. 9:15:15 Use device set IR Diagnostic 9:15:17 Bag Decanter (2002S) opened to sterile field. 9:15:17 Sterile Angiographic Pack opened to sterile field. 9:15:17 Tegaderm 4 x 4 ([id number]) opened to sterile field. 9:15:23 Correct patient and procedure confirmed by team. 9:15:24 ECG and BP/O2 sat monitors applied to patient. 9:15:25 Full Disclosure recording started 9:15:25 - 9:15:30 H&P Date Dictated: 02/06/2020 Within 30 days and on chart.. 9:15:31 Pre-procedure instructions explained to patient. 9:15:31 Pre-op teaching completed and patient verbalized understanding. 9:15:34 Family in patients room. 9:15:36 Patient NPO since Midnight. 9:15:39 Is patient on blood thinner?No 9:15:41 Patient diabetic? No. 9:22:52 ----Pre-sedation anethsthesia assessment.---- 9:22:55 Snore? Yes 9:22:57 Sleep apnea? Yes 9:22:59 Deviated septum? No 9:23:00 Opens mouth fully? Yes 9:23:02 Sticks out tongue? Yes 9:23:05 Airway obstruction? No ? 9:23:10 Dentures? Yes in 9:23:21 1) 90+ Normal kidney functon but urine findings or structural abnormalities or genetic trait point to kidney disease. 9:23:53 Maximum allowable contrast dose (3.7 X eGFR X 0.75)249.75 ml. 9:32:07 IV patent on arrival in Left upper arm with 0.9% NaCl at KVO. 9:32:16 Left Abdomen was prepped with betadine and draped in sterile fashion. 9:37:26 Vital chart was started 9:50:45 Baseline sample Acquired. 9:50:50 Physician arrived 9:50:50 --------ALL STOP TIME OUT------ 9:50:51 Final Timeout: patient, procedure, and site verified with staff and physician. All members of the team are in agreement. 9:50:57 Left abdomen site verified by team. 9:51:02 Fire Safety Assessment: A--An alcohol-based skin anteseptic being used preoperatively., C--Open oxygen or nitrous oxide is being used. 9:51:12 Procedure started. 9:54:30 Versed 1 mg I.V. was administered by Elfego MAHAJAN RN; for sedation; Verbal order read back and verified. 9:54:39 Fentanyl 25 mcg I.V. was administered by Elfego MAHAJAN RN; for sedation; Verbal order read back and verified. 9:54:39 GLIDE WIRE ANGLE 180cm ([id number]) opened to sterile field. 9:54:50 Lidocaine 1% 20ml vial added to field was administered by Elfego Christian RN; used for procedure; Verbal order read back and verified. 9:55:08 Heparin Flush Bag (1000units/500ml NS) 1 bags added to field was administered by Elfego MAHAJAN RN; used for procedure; Verbal order read back and verified. 9:55:16 Local anesthetic to Abdominal area with Lidocaine 1% by Annabelle Astorga MD.INITIAL ACCESS ONLY 9:59:16 Fentanyl 50 mcg I.V. was administered by Elfego MAHAJAN RN; for sedation; Verbal order read back and verified. 10:02:23 Versed 1 mg I.V. was administered by Elfego MAHAJAN RN; for sedation; Verbal order read back and verified. 10:20:31 STOPCOCK 3-Way Large Bore ([id number]) opened to sterile field. 10:20:35 A Merit Impress KA2 5Fr 65CM catheter ([id number]) was advanced over the wire and used for . 10:21:35 Procedure ended.(Physican Out) 10:21:41 Fluoroscopy time 11.40 minutes. 10:21:51 Fluoroscopy dose: 721 mGy 10:21:51 Flurop Dose total: 721 10:22:18 Contrast amount:Isovue 300 40ml. 10:22:46 Sharps counted by scrub and verified by R.N. 10:22:55 Post-op/insertion site Left Abdominal area dressed using a 4 x 4 and Tegaderm. 10:23:07 Post procedure instruction explained to patient.Patient verbalizes understanding. 10:23:34 Report given to Med/Surg. 10:23:38 Patient transfered to Med/Surg with Bed. 10:26:20 Vital chart was stopped Device Usage Item Name Manufacture Quantity Catalog Hospital Part Current Minimal Lot# / Number Charge Number Stock Stock Serial# Code Bag Decanter Microtek 1 [id number] 5 () Medical Inc. Sterile Cardinal 1 [id number] 5 Angiographic Health Pack Tegaderm 4 x 3M 1 [id number] 5 4 (1626W) GLIDE WIRE Terumo 1 [id number] 5 ANGLE 180cm ([id number]) STOPCOCK Cook Medical 1 [id number] [id number] 6722 [id number] [id number] 3-Way Large Bore ([id number]) Merit Merit 1 [id number] [id number] [id number] 5 Impress KA2 Medical 5Fr 65CM catheter ([id number]) Signature Audit [place] Stage Time Signature Unsigned Intra-Procedure 02/06/2020 Charlie 10:26:15 AM [facility] RT (R) (CV) [facility] [address] [place] [address]
[~2020-02-04 14:34] MED LIST changes: +ACETAMINOPHEN325 MG PO; +ALBUTEROL SULF8.5 GM INH; +ALBUTEROL2.5 MG/3 M INH; +CREON DR 24,001 EACH PO; +FLORAJEN3 CAPS460 MG PO; +GABAPENTIN300 MG PO; +LEVOFLOXACIN500 MG PO; +LISINOPRIL5 MG PO; +MAG-OX 400 MG400 MG PO; +MERREM 1 GM/NS 11 G1 IV; +NITROQUICK0.4 MG SL; +OXYCODONE HCL5 M1 PO; +PRISTIQ100 MG PO; +PROPRANOLOL HCL20 MG PO; +TEMAZEPAM30 MG PO; +TORADOL10 MG PO; +ULTRAM50 MG PO; +VALIUM10 MG PO; +ZENPEP PO; +ZONISAMIDE50 MG PO
--- NOTE | 2020-02-04 19:30 | NUR ---
PATIENT ADMITTED. HE IS COMPLAINING OF THE AIR NOT WORKING IN THE ROOM. WE GOT HIM A FAN. SIMRAN THE PHYSICIAN'S SERVICE PROMOTER SALESPERSON WAS CALLED TO ORDER PAIN MED. SHE DID COME IN AND SEE THE PATIENT. HE IS RESTING COMFORTABLY.
[2020-02-04 23:25] VITALS: BP 108/74
[2020-02-05 04:00] VITALS: BP 96/65
--- NOTE | 2020-02-05 04:25 | NUR ---
PATIENT IS SLEEPING COMFORTABLY IN BED. THE PHYSICIAN'S ENFORCEMENT MANAGER CAME AND SEEN THE PATIENT LAST NIGHT. ORDER PUT IN. OXYCODONE GIVEN ONCE. 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
[2020-02-05 04:52] LABS: BASOPHILS 0.1 % (0-2); HEMATOCRIT 29.8 % (42.0-54.0); HEMOGLOBIN 9.7 g/dL (13.5-17.5); IMMATURE GRANULOCYTES 0.5 % (0-5); LYMPHOCYTES 9.9 % (15-50); MCH 30.3 pg (26.0-34.0); MCHC 32.6 g/dL (31.0-37.0); MCV 93.1 fL (80.0-100.0); MEAN PLATELET VOLUME 9.1 fL (7.4-10.4); MONOCYTES 13.8 % (2-11); NEUTROPHILS 72.7 % (40-80); PLATELET COUNT 292 10x3/uL (130-400); RDW 14.4 % (11.5-14.5)
[2020-02-05 05:13] LABS: APTT 34.4 SECONDS (22.8-39.4); INR 1.06 (0.85-1.17); PROTIME 13.8 SECONDS (11.6-15.0)
[2020-02-05 05:24] LABS: % SATURATION 11 % (15-55); IRON 19 ug/dl (35-150); TOTAL IRON BIND CAPACITY 164 ug/dl (260-445); UNSAT IRON BIND CAPACITY 145 ug/dl (150-375)
[2020-02-05 05:46] LABS: ALBUMIN 2.6 g/dL (3.4-5.0); ALKALINE PHOSPHATASE 87 U/L (30-120); ALT (SGPT) 15 U/L (10-68); AMYLASE - SERUM 13 U/L (25-115); BILIRUBIN - TOTAL 0.43 mg/dL (0.2-1.3); CALC OSMOLALITY 250 mosm/kg (275-300); CALCIUM 9.3 mg/dL (8.5-10.1); CARBON DIOXIDE 26.6 mmol/L (21.0-32.0); CHLORIDE - SERUM 90 mmol/L (98-107); CKMB 0.5 U/L (0.0-3.6); CREATINE KINASE 16 UL (21-232); CREATININE - SERUM 0.9 mg/dL (0.6-1.3); FERRITIN 736 ng/mL (3-244); GLUCOSE 104 mg/dL (74-106); LIPASE 64 U/L (73-393); MAGNESIUM - SERUM 1.5 mg/dL (1.8-2.4); POTASSIUM - SERUM 4.3 mmol/L (3.5-5.1); PROTEIN - SERUM 6.9 g/dL (6.4-8.2); SODIUM 124 mmol/L (136-145); TROPONIN-I < 0.017 ng/mL (0.000-0.060); UREA NITROGEN 14 mg/dL (7-18); eGFR NON AFRICAN AMERICAN > 90 mL/min (90-120)
--- NOTE | 2020-02-05 09:12 | NUR ---
PT RESTING IN BED WITH EYES CLOSED. PT EASILY AROUSED BY NAME. RESP EVEN AND UNLABORED. REPORTS PAIN 7/10 AT THIS TIME. EDUCATED PT REGARDING NEXT TIME MEDICATION COULD BE ADMINISTERED. DRESSING TO ABDOMEN C/D/I. BILIARY DRAIN IN PLACE TO GRAVITY, WITHOUT DRAINAGE. SALINE LOC TO LEFT UPPER ARM, AND LEFT FOREARM. BOTH SITES WITHOUT REDNESS OR EDEMA. EASILY FLUSHES. INSTRUCTED PT ON NEED FOR URINE SAMPLE. PT VOICES UNDERSTANDING. DENIES FURTHER NEEDS AT THIS TIME. CL WITHIN REACH. ENCOURAGED TO CALL WITH NEEDS. CONTINUE POC
[2020-02-05 09:16] LABS: CKMB 0.2 U/L (0.0-3.6); CREATINE KINASE 14 UL (21-232); TROPONIN-I < 0.017 ng/mL (0.000-0.060)
[2020-02-05 09:50] VITALS: BP 112/72
[2020-02-05 12:37] VITALS: Ht 203.2 cm; Wt 205.0 kg
[2020-02-05 12:52] LABS: BACTERIA NONE SEEN /hpf (NEGATIVE); BILIRUBIN NEGATIVE (NEGATIVE); EPITHELIAL CELLS RARE /hpf (0-5); GLUCOSE NEGATIVE (NEGATIVE); KETONE SMALL mg/dL (NEGATIVE); NITRITE NEGATIVE (NEGATIVE); RED CELLS - URINE NONE SEEN /hpf (0-5); SPECIFIC GRAVITY 1.005 (1.005-1.020); UROBILINOGEN NORMAL (NORMAL); WHITE CELLS - URINE RARE /hpf (NEGATIVE)
--- NOTE | 2020-02-05 13:07 | NUR ---
OT NOTE: PT REFUSED TMT TODAY. STATED THAT HE WAS ABLE TO MOVE AND WALK IF HE WANTED TO, BUT WAS NOT DOING ANYTHING UNTIL HE RECEIVED THE SURGERY. RAMA COYLE, OTR/L
[2020-02-05 13:28] VITALS: BP 124/72
[2020-02-05 14:44] LABS: CKMB 0.4 U/L (0.0-3.6); CREATINE KINASE 13 UL (21-232)
[2020-02-05 14:56] LABS: TROPONIN-I < 0.017 ng/mL (0.000-0.060)
[2020-02-05 18:15] VITALS: BP 142/73
[2020-02-05 20:00] VITALS: BP 103/59
[2020-02-06] VITALS (7 sets, daily range): BP systolic 104–142; BP diastolic 62–77
--- NOTE | 2020-02-06 04:32 | NUR ---
PATIENT SLEEPING COMFORTABLY IN BED. PATIENT SIGNED CONSENT FOR PROCEDURE TODAY. PATIENT IS ON DOCUMENTATION LIAISON PUMP WITH 0.2 MG DILUADID EVERY 10 MINUTES, WITH 4 MG 4 HOUR LOCK OUT. PATIENT HAD THREE 0.4 MG BOLUS IN 9 HOURS. HE HAS BEEN NPO SINCE MIDNIGHT.
[2020-02-06 04:57] LABS: BASOPHILS 0.2 % (0-2); EOSINOPHILS 3.7 % (0-7); HEMATOCRIT 29.3 % (42.0-54.0); HEMOGLOBIN 9.5 g/dL (13.5-17.5); LYMPHOCYTES 9.2 % (15-50); MCHC 32.4 g/dL (31.0-37.0); MCV 92.4 fL (80.0-100.0); MEAN PLATELET VOLUME 8.9 fL (7.4-10.4); MONOCYTES 15.6 % (2-11); NEUTROPHILS 70.3 % (40-80); PLATELET COUNT 300 10x3/uL (130-400); RBC 3.17 10x6/uL (4.20-6.10); RDW 14.5 % (11.5-14.5); WBC 10.4 10x3/uL (4.8-10.8)
[2020-02-06 05:05] LABS: INR 1.05 (0.85-1.17); PROTIME 13.7 SECONDS (11.6-15.0)
[2020-02-06 05:23] LABS: ALBUMIN 2.4 g/dL (3.4-5.0); ALKALINE PHOSPHATASE 96 U/L (30-120); ALT (SGPT) 17 U/L (10-68); BILIRUBIN - TOTAL 0.26 mg/dL (0.2-1.3); CALC OSMOLALITY 252 mosm/kg (275-300); CALCIUM 9.1 mg/dL (8.5-10.1); CARBON DIOXIDE 26.6 mmol/L (21.0-32.0); CHLORIDE - SERUM 93 mmol/L (98-107); CREATININE - SERUM 0.8 mg/dL (0.6-1.3); GLUCOSE 100 mg/dL (74-106); MAGNESIUM - SERUM 1.5 mg/dL (1.8-2.4); POTASSIUM - SERUM 4.3 mmol/L (3.5-5.1); PROTEIN - SERUM 6.6 g/dL (6.4-8.2); SODIUM 126 mmol/L (136-145); UREA NITROGEN 12 mg/dL (7-18); eGFR NON AFRICAN AMERICAN > 90 mL/min (90-120)
--- NOTE | 2020-02-06 07:37 | NUR ---
HE IS WANTING TO "GET THIS OVER WITH" GET THE DRAIN REPLACED OR REMOVED FROM IR. HE HAS A DRESSING OVER THE DRAIN SITE ( UPPER LEFT ABD) CLEAN, DRY, INTACT. THE CALL LIGHT IS WITHIN REACH. MEDICAL SCHEDULER IN USE AND PLUS BOLUS.
--- NOTE | 2020-02-06 11:07 | NUR ---
BACK FROM IR, THEY REMOVED THE DRAIN TUBE. HE IS NOT HAPPY, HE THINKS SHE NEEDED A NEW DRIAN TUBE. PAGED THE DOCTORS REGARDING HIS CONCERNS. HIS MOM IS AT THE BEDSIDE. THE CALL LIGHT IS WITHIN REACH. HIS VS ARE STABLE.
--- NOTE | 2020-02-06 13:00 | NUR ---
NEW IV STARTED TO THE RIGHT ARM. THE ONE IN THE LEFT ARM "FELL OUT" KATIE BLOUNT FROM [facility] CAME IN AND ANSWERED HIS QUESTIONS WELL BECKY RN FORM IR. HE UNDERSTANDS WHY THEY DID NOT PLACE A DRAIN. THE CALL LIT IS JOCELYNN LAGOS.
[2020-02-07] VITALS: BP 113/61
[2020-02-07 04:00] VITALS: BP 111/50
[2020-02-07 06:42] LABS: BASOPHILS 0.1 % (0-2); EOSINOPHILS 4.2 % (0-7); HEMATOCRIT 29.1 % (42.0-54.0); HEMOGLOBIN 9.3 g/dL (13.5-17.5); IMMATURE GRANULOCYTES 1.1 % (0-5); MCH 29.9 pg (26.0-34.0); MCV 93.6 fL (80.0-100.0); MEAN PLATELET VOLUME 8.9 fL (7.4-10.4); NEUTROPHILS 72.6 % (40-80); PLATELET COUNT 339 10x3/uL (130-400); RBC 3.11 10x6/uL (4.20-6.10); RDW 14.6 % (11.5-14.5); WBC 10.9 10x3/uL (4.8-10.8)
[2020-02-07 07:19] LABS: ALBUMIN 2.4 g/dL (3.4-5.0); ALKALINE PHOSPHATASE 85 U/L (30-120); ALT (SGPT) 15 U/L (10-68); BILIRUBIN - TOTAL 0.23 mg/dL (0.2-1.3); CALC OSMOLALITY 255 mosm/kg (275-300); CALCIUM 8.9 mg/dL (8.5-10.1); CARBON DIOXIDE 27.6 mmol/L (21.0-32.0); CHLORIDE - SERUM 92 mmol/L (98-107); CREATININE - SERUM 0.8 mg/dL (0.6-1.3); FERRITIN 795 ng/mL (3-244); GLUCOSE 99 mg/dL (74-106); MAGNESIUM - SERUM 1.6 mg/dL (1.8-2.4); POTASSIUM - SERUM 4.5 mmol/L (3.5-5.1); PROTEIN - SERUM 5.9 g/dL (6.4-8.2); SODIUM 128 mmol/L (136-145); UREA NITROGEN 11 mg/dL (7-18); eGFR NON AFRICAN AMERICAN > 90 mL/min (90-120)
[2020-02-07 07:21] LABS: % SATURATION 10 % (15-55); IRON 13 ug/dl (35-150)
[2020-02-07 07:22] LABS: TOTAL IRON BIND CAPACITY 129 ug/dl (260-445); UNSAT IRON BIND CAPACITY 116 ug/dl (150-375)
--- NOTE | 2020-02-07 09:00 | NUR ---
ALERT AND ORIENTED X4. DRESSISNG INTACT TO ABDOMEN WITH BOWEL SOUNDS HYPOACTIVE X4. CONTINUED DILAUDID STAFF THERAPIST AT PRESCRIBED. PATIENT COMPLAINS OF ABDOMINAL PAIN 8/10 WITH MEDICAITON EFFECTIVE WITH BOLUS WELL. INSTRUCTED ON NEED FOR STOOL SPECIMEN. BILAT. BKA WITH SKIN INTACT.ENCOURAGED TO USE CALL LIGHT FOR ASSSIT.
[2020-02-07 09:51] VITALS: BP 142/84
[2020-02-07 14:57] VITALS: BP 129/69
[2020-02-07 17:40] VITALS: BP 124/71
[2020-02-07 20:00] VITALS: BP 134/100
--- NOTE | 2020-02-08 03:36 | NUR ---
I have reviewed this patient and I concur with the Shift Assessment completed by the Licensed Practical Nurse today this shift.
[2020-02-08 07:39] LABS: HEMATOCRIT 29.2 % (42.0-54.0); LYMPHOCYTES 7.7 % (15-50); MCH 31.4 pg (26.0-34.0); MCHC 34.2 g/dL (31.0-37.0); MCV 91.8 fL (80.0-100.0); MEAN PLATELET VOLUME 9.1 fL (7.4-10.4); NEUTROPHILS 83.5 % (40-80); PLATELET COUNT 385 10x3/uL (130-400); RBC 3.18 10x6/uL (4.20-6.10); RDW 14.1 % (11.5-14.5); WBC 11.2 10x3/uL (4.8-10.8)
[2020-02-08 07:47] LABS: ALBUMIN 2.4 g/dL (3.4-5.0); ALKALINE PHOSPHATASE 92 U/L (30-120); ALT (SGPT) 18 U/L (10-68); BILIRUBIN - TOTAL 0.23 mg/dL (0.2-1.3); CALC OSMOLALITY 257 mosm/kg (275-300); CALCIUM 8.6 mg/dL (8.5-10.1); CARBON DIOXIDE 26.2 mmol/L (21.0-32.0); CHLORIDE - SERUM 94 mmol/L (98-107); CREATININE - SERUM 0.7 mg/dL (0.6-1.3); GLUCOSE 97 mg/dL (74-106); MAGNESIUM - SERUM 1.6 mg/dL (1.8-2.4); POTASSIUM - SERUM 4.5 mmol/L (3.5-5.1); PROTEIN - SERUM 5.7 g/dL (6.4-8.2); SODIUM 129 mmol/L (136-145); UREA NITROGEN 10 mg/dL (7-18); eGFR NON AFRICAN AMERICAN > 90 mL/min (90-120)
[2020-02-08 08:51] VITALS: BP 140/83
[2020-02-08 14:02] VITALS: BP 150/78
[2020-02-08 17:09] VITALS: BP 120/67
[2020-02-08 20:00] VITALS: BP 127/56
[2020-02-09 04:00] VITALS: BP 118/66
--- NOTE | 2020-02-09 04:00 | NUR ---
I have reviewed this patient and I concur with the Shift Assessment completed by the Licensed Practical Nurse today this shift.
[2020-02-09 05:37] LABS: BASOPHILS 0.2 % (0-2); EOSINOPHILS 2.8 % (0-7); HEMATOCRIT 28.2 % (42.0-54.0); HEMOGLOBIN 9.2 g/dL (13.5-17.5); IMMATURE GRANULOCYTES 1.2 % (0-5); LYMPHOCYTES 7.9 % (15-50); MCH 30.5 pg (26.0-34.0); MCHC 32.6 g/dL (31.0-37.0); MCV 93.4 fL (80.0-100.0); MONOCYTES 10.2 % (2-11); NEUTROPHILS 77.7 % (40-80); PLATELET COUNT 436 10x3/uL (130-400); RBC 3.02 10x6/uL (4.20-6.10); RDW 14.7 % (11.5-14.5); WBC 12.7 10x3/uL (4.8-10.8)
[2020-02-09 06:11] LABS: ALBUMIN 2.3 g/dL (3.4-5.0); ALKALINE PHOSPHATASE 84 U/L (30-120); ALT (SGPT) 16 U/L (10-68); BILIRUBIN - TOTAL 0.21 mg/dL (0.2-1.3); CALC OSMOLALITY 257 mosm/kg (275-300); CALCIUM 9.1 mg/dL (8.5-10.1); CARBON DIOXIDE 28.1 mmol/L (21.0-32.0); CHLORIDE - SERUM 93 mmol/L (98-107); CHOL - HDL RATIO 5.2 ratio (2.3-4.9); CHOLESTEROL, TOTAL 157 mg/dL (0-200); CREATININE - SERUM 0.8 mg/dL (0.6-1.3); GLUCOSE 107 mg/dL (74-106); HDL CHOLESTEROL 30 mg/dL (32-96); LDL CHOLESTEROL 112 mg/dL (0-100); LDL-HDL RATIO 3.7 ratio (1.5-3.5); MAGNESIUM - SERUM 1.6 mg/dL (1.8-2.4); POTASSIUM - SERUM 4.1 mmol/L (3.5-5.1); PROTEIN - SERUM 6.2 g/dL (6.4-8.2); SODIUM 129 mmol/L (136-145); TRIGLYCERIDE 79 mg/dL (30-200); UREA NITROGEN 9 mg/dL (7-18); eGFR NON AFRICAN AMERICAN > 90 mL/min (90-120)
[2020-02-09 08:59] VITALS: BP 135/84
[2020-02-09 12:52] VITALS: BP 128/82
[2020-02-09 17:04] VITALS: BP 114/72
[2020-02-09 20:00] VITALS: BP 148/82
--- NOTE | 2020-02-09 20:30 | NUR ---
AWAKE,ALERT.COMPALITNS OF PAIN TO ABD 8/10. WEAPONS SPECIALIST DILAUDID IN USE FOR PAIN CONTROL. IV TO RIGHT WRIST INFILTRATED. RESITED TO ERI PER Marlyn FRIAS LPN X 1 ATTEMPT. DRESSING TO ABD INTACT WITHOUT DRAINAGE NOTED. CL IN REACH
[2020-02-10 04:00] VITALS: BP 113/69
--- NOTE | 2020-02-10 07:36 | NUR ---
PATIENT SITTING UP IN BED. CL IN REACH. WCTM
[2020-02-10 07:37] LABS: ALBUMIN 2.3 g/dL (3.4-5.0); ALKALINE PHOSPHATASE 77 U/L (30-120); ALT (SGPT) 16 U/L (10-68); BILIRUBIN - TOTAL 0.26 mg/dL (0.2-1.3); CALC OSMOLALITY 256 mosm/kg (275-300); CALCIUM 9.3 mg/dL (8.5-10.1); CARBON DIOXIDE 29.5 mmol/L (21.0-32.0); CHLORIDE - SERUM 95 mmol/L (98-107); CREATININE - SERUM 0.7 mg/dL (0.6-1.3); GLUCOSE 127 mg/dL (74-106); MAGNESIUM - SERUM 1.6 mg/dL (1.8-2.4); POTASSIUM - SERUM 4.1 mmol/L (3.5-5.1); PROTEIN - SERUM 6.2 g/dL (6.4-8.2); SODIUM 128 mmol/L (136-145); UREA NITROGEN 8 mg/dL (7-18); eGFR NON AFRICAN AMERICAN > 90 mL/min (90-120)
[2020-02-10 08:08] LABS: HEMATOCRIT 28.2 % (42.0-54.0); HEMOGLOBIN 9.4 g/dL (13.5-17.5); LYMPHOCYTES 7.5 % (15-50); MCH 30.8 pg (26.0-34.0); MCHC 33.3 g/dL (31.0-37.0); MCV 92.5 fL (80.0-100.0); MEAN PLATELET VOLUME 8.5 fL (7.4-10.4); RBC 3.05 10x6/uL (4.20-6.10); RDW 14.3 % (11.5-14.5); WBC 12.4 10x3/uL (4.8-10.8)
[2020-02-10 08:09] LABS: PLATELET COUNT 550 10x3/uL (130-400)
[2020-02-10 09:05] VITALS: BP 123/73
[2020-02-10 13:06] VITALS: BP 125/65
--- NOTE | 2020-02-10 13:46 | NUR ---
Nutrition consult: Pt states he has heart burn all the time; wants something more than Tums. RDN advised him to speak with his physician. Pt with fair to good po intake; does not want any fried foods. Pt receiving a regular diet; RDN will change diet order to no fried foods and pt requesting Ensure with meals. Thank you for the consult. KRYSTINA following.
[2020-02-10 18:04] VITALS: BP 127/79
--- NOTE | 2020-02-10 19:31 | NUR ---
REC'D. CHGE OF SHIFT WALKING ROUNDS SITTING UP IN BED WATCHING TV.DRSG ABDOMEN LUQ TO DRAIN SITE DRY AND INTACT.REINFORCED 1500CC DAILY FLD REST.STATES DID NOT KNOW FLDS WERE BEING REST.WILL CONTINUE TO MONITOR FOR ANY CHGES AND FOLLOW CURRENT PLAN OF CARE.
[2020-02-10 20:00] VITALS: BP 135/78
[2020-02-11 04:00] VITALS: BP 117/72
--- NOTE | 2020-02-11 05:01 | NUR ---
I have reviewed this patient and I concur with the Shift Assessment completed by the Licensed Practical Nurse today this shift.
[2020-02-11 05:23] LABS: HEMATOCRIT 30.6 % (42.0-54.0); LYMPHOCYTES 9.7 % (15-50); MCH 30.2 pg (26.0-34.0); MCHC 32.7 g/dL (31.0-37.0); MCV 92.4 fL (80.0-100.0); MEAN PLATELET VOLUME 8.7 fL (7.4-10.4); NEUTROPHILS 79.2 % (40-80); PLATELET COUNT 572 10x3/uL (130-400); RBC 3.31 10x6/uL (4.20-6.10); RDW 14.2 % (11.5-14.5); WBC 14.1 10x3/uL (4.8-10.8)
[2020-02-11 05:32] LABS: ALBUMIN 2.5 g/dL (3.4-5.0); ALKALINE PHOSPHATASE 87 U/L (30-120); ALT (SGPT) 20 U/L (10-68); BILIRUBIN - TOTAL 0.29 mg/dL (0.2-1.3); CALC OSMOLALITY 253 mosm/kg (275-300); CALCIUM 9.2 mg/dL (8.5-10.1); CARBON DIOXIDE 29.2 mmol/L (21.0-32.0); CHLORIDE - SERUM 93 mmol/L (98-107); CREATININE - SERUM 0.8 mg/dL (0.6-1.3); GLUCOSE 103 mg/dL (74-106); MAGNESIUM - SERUM 1.8 mg/dL (1.8-2.4); PHOSPHOROUS 4.8 mg/dL (2.5-4.9); POTASSIUM - SERUM 4.1 mmol/L (3.5-5.1); PROTEIN - SERUM 6.7 g/dL (6.4-8.2); SODIUM 127 mmol/L (136-145); UREA NITROGEN 10 mg/dL (7-18); eGFR NON AFRICAN AMERICAN > 90 mL/min (90-120)
[2020-02-11 09:35] VITALS: BP 106/65
[2020-02-11 10:31] LABS: CKMB 0.4 U/L (0.0-3.6); CREATINE KINASE 13 UL (21-232); TROPONIN-I < 0.017 ng/mL (0.000-0.060)
[2020-02-11 13:17] VITALS: BP 120/57
[2020-02-11 17:47] VITALS: BP 115/61
[2020-02-11 18:09] LABS: CKMB 0.6 U/L (0.0-3.6); CREATINE KINASE 14 UL (21-232)
[2020-02-11 18:11] LABS: TROPONIN-I < 0.017 ng/mL (0.000-0.060)
[2020-02-11 20:00] VITALS: BP 111/69
[2020-02-11 23:11] LABS: CKMB 0.4 U/L (0.0-3.6); CREATINE KINASE 14 UL (21-232); TROPONIN-I < 0.017 ng/mL (0.000-0.060)
[2020-02-12 04:00] VITALS: BP 153/91
--- NOTE | 2020-02-12 06:00 | NUR ---
I have reviewed this patient and I concur with the Shift Assessment completed by the Licensed Practical Nurse today this shift.
[2020-02-12 06:35] LABS: HEMATOCRIT 30.2 % (42.0-54.0); LYMPHOCYTES 7.3 % (15-50); MCH 30.7 pg (26.0-34.0); MCHC 33.1 g/dL (31.0-37.0); MCV 92.6 fL (80.0-100.0); MEAN PLATELET VOLUME 8.1 fL (7.4-10.4); NEUTROPHILS 84.8 % (40-80); PLATELET COUNT 601 10x3/uL (130-400); RBC 3.26 10x6/uL (4.20-6.10); RDW 14.3 % (11.5-14.5); WBC 11.9 10x3/uL (4.8-10.8)
[2020-02-12 07:05] LABS: ALBUMIN 2.3 g/dL (3.4-5.0); ALKALINE PHOSPHATASE 77 U/L (30-120); ALT (SGPT) 15 U/L (10-68); BILIRUBIN - TOTAL 0.25 mg/dL (0.2-1.3); CALC OSMOLALITY 266 mosm/kg (275-300); CALCIUM 9.3 mg/dL (8.5-10.1); CARBON DIOXIDE 28.1 mmol/L (21.0-32.0); CHLORIDE - SERUM 99 mmol/L (98-107); CREATININE - SERUM 0.7 mg/dL (0.6-1.3); GLUCOSE 126 mg/dL (74-106); MAGNESIUM - SERUM 1.8 mg/dL (1.8-2.4); PHOSPHOROUS 4.2 mg/dL (2.5-4.9); POTASSIUM - SERUM 4.3 mmol/L (3.5-5.1); PROTEIN - SERUM 6.4 g/dL (6.4-8.2); SODIUM 133 mmol/L (136-145); UREA NITROGEN 11 mg/dL (7-18); eGFR NON AFRICAN AMERICAN > 90 mL/min (90-120)
[2020-02-12 09:07] VITALS: BP 129/76
--- NOTE | 2020-02-12 09:30 | NUR ---
HE IS AWAKE. THE CALL LIGHT IS WITHIN REACH. HE IS C/O UPPER GASTRIC PAIN, "ACID". HIS MEDS WERE GIVEN.
[2020-02-12 12:50] VITALS: BP 124/79
--- NOTE | 2020-02-12 14:40 | NUR ---
OT NOTE: PT REFUSED OT EVAL; STATES THAT HE IS NOT INTERESTED IN RECEIVING THERAPY. RAMA COYLE, OTR/L
[2020-02-12 16:45] VITALS: BP 122/74
[2020-02-12 20:00] VITALS: BP 120/63
--- NOTE | 2020-02-12 20:12 | NUR ---
REC'D IN BED SITTING UPRIGHT POSITION. CONTINUE TO RATE ABDOMINAL PAIN 8 ON 1-10 PAIN SCALE.DENIES NAUSEA.CONTACT ISOLATION CONTINUES.WILL CONTINUE TO MONITOR FOR ANY CHGES AND FOLLOW CURRENT PLAN OF CARE.
[2020-02-13 04:00] VITALS: BP 139/83
--- NOTE | 2020-02-13 05:41 | NUR ---
I have reviewed this patient and I concur with the Shift Assessment completed by the Licensed Practical Nurse today this shift.
[2020-02-13 06:09] LABS: ALBUMIN 2.3 g/dL (3.4-5.0); ALKALINE PHOSPHATASE 72 U/L (30-120); ALT (SGPT) 12 U/L (10-68); BILIRUBIN - TOTAL 0.29 mg/dL (0.2-1.3); CALC OSMOLALITY 264 mosm/kg (275-300); CARBON DIOXIDE 27.7 mmol/L (21.0-32.0); CHLORIDE - SERUM 99 mmol/L (98-107); CREATININE - SERUM 0.8 mg/dL (0.6-1.3); GLUCOSE 107 mg/dL (74-106); MAGNESIUM - SERUM 1.6 mg/dL (1.8-2.4); PHOSPHOROUS 3.8 mg/dL (2.5-4.9); PROTEIN - SERUM 6.1 g/dL (6.4-8.2); SODIUM 133 mmol/L (136-145); UREA NITROGEN 10 mg/dL (7-18); eGFR NON AFRICAN AMERICAN > 90 mL/min (90-120)
[2020-02-13 07:04] LABS: HEMATOCRIT 28.8 % (42.0-54.0); HEMOGLOBIN 9.4 g/dL (13.5-17.5); LYMPHOCYTES 10.5 % (15-50); MCH 30.2 pg (26.0-34.0); MCHC 32.6 g/dL (31.0-37.0); MCV 92.6 fL (80.0-100.0); MEAN PLATELET VOLUME 8.7 fL (7.4-10.4); NEUTROPHILS 77.4 % (40-80); PLATELET COUNT 641 10x3/uL (130-400); RBC 3.11 10x6/uL (4.20-6.10); RDW 14.4 % (11.5-14.5); WBC 11.7 10x3/uL (4.8-10.8)
[2020-02-13] MEDS ORDERED: PROTONIX40 MG PO (10:19)
[2020-02-13] MEDS ORDERED: CARAFATE1 G PO (10:20)
[2020-02-13 10:31] VITALS: BP 127/59
--- NOTE | 2020-02-13 12:00 | NUR ---
PT C/O UPPER TRANSVERE ABD PAIN 8/10 ON SALMERON SCALE. STILL REQUEST GI CONSULT. MOTHER AT BEDSIDE REPORTS CONCERN WITH PT INCREASED PAIN SINCE ADMIT WITHOUT PAIN CONTROL AND MD AWARE OF PAIN UNCONTROLLED. PO PAIN MEDICATION GIVEN PER MD ORDERS WITHOUT CONTROL.
[2020-02-13 13:20] VITALS: BP 128/76
[2020-02-13 17:38] VITALS: BP 122/73
--- NOTE | 2020-02-13 18:04 | NUR ---
SITTING UP IN BED WATCHING TV REPORTS MS 4MG IV GAVE SOME RELIEF WITH PAIN SCALE 4/10. REPORTED ELSIE CHENG INFORM HIM OF ABD ABSCESS THE SIZE OF A GRAPEFRUIT AND WILL BE NOTIFING SURGEON WHOM PERFORMED I&D.
[2020-02-13 20:00] VITALS: BP 125/67
--- NOTE | 2020-02-13 20:00 | NUR ---
PATIENT SITTING UP IN BED WATCHING TV. PATIENT IS VERY UPSET ABOUT THE SITUATION AND BEING CALLED "DRUG-SEEKING". PATIENT SEEMS TO BE VERY ANXIOUS LEARNING ABOUT THE ABCESS THAT HE HAS. NO S/S OF ACUTE DISTRESS. PATIENT C/O OF PAIN, THAT THE OXYCODONE ISN'T WORKING. PATIENT WANTS TO WAIT THOUGH TO TRY AND SPACE OUT HIS PAIN MEDICINE. PATIENT HAS RIGHT FOREARM, NORMAL SALINE @ 100 ML/HR, AND LEFT FOREARM, SALINE LOC. BOTH IVS ARE PATENT WITHOUT REDNESS, SWELLING, OR TENDERNESS. PATIENT HAS BILAT BKA WITH PROSTHETICS AT BEDSIDE. CALL LIGHT WITHIN REACH. WILL CONTINUE TO MONITOR.
--- NOTE | 2020-02-14 03:41 | NUR ---
I have reviewed this patient and I concur with the Shift Assessment completed by the Licensed Practical Nurse today this shift.
[2020-02-14 04:00] VITALS: BP 129/76
[2020-02-14 05:37] LABS: ALBUMIN 2.3 g/dL (3.4-5.0); ALKALINE PHOSPHATASE 68 U/L (30-120); ALT (SGPT) 12 U/L (10-68); BILIRUBIN - TOTAL 0.32 mg/dL (0.2-1.3); CALC OSMOLALITY 263 mosm/kg (275-300); CALCIUM 8.8 mg/dL (8.5-10.1); CARBON DIOXIDE 27.2 mmol/L (21.0-32.0); CHLORIDE - SERUM 98 mmol/L (98-107); CREATININE - SERUM 0.7 mg/dL (0.6-1.3); GLUCOSE 109 mg/dL (74-106); MAGNESIUM - SERUM 1.4 mg/dL (1.8-2.4); PHOSPHOROUS 4.5 mg/dL (2.5-4.9); POTASSIUM - SERUM 3.8 mmol/L (3.5-5.1); PROTEIN - SERUM 6.1 g/dL (6.4-8.2); SODIUM 132 mmol/L (136-145); UREA NITROGEN 8 mg/dL (7-18); eGFR NON AFRICAN AMERICAN > 90 mL/min (90-120)
[2020-02-14 06:37] LABS: HEMATOCRIT 28.4 % (42.0-54.0); HEMOGLOBIN 9.4 g/dL (13.5-17.5); LYMPHOCYTES 7.5 % (15-50); MCH 30.6 pg (26.0-34.0); MCHC 33.1 g/dL (31.0-37.0); MCV 92.5 fL (80.0-100.0); MEAN PLATELET VOLUME 8.5 fL (7.4-10.4); NEUTROPHILS 77.6 % (40-80); PLATELET COUNT 629 10x3/uL (130-400); RBC 3.07 10x6/uL (4.20-6.10); RDW 14.6 % (11.5-14.5); WBC 12.4 10x3/uL (4.8-10.8)
[2020-02-14 09:47] VITALS: BP 133/13
[2020-02-14 13:13] VITALS: BP 119/66
--- NOTE | 2020-02-14 16:53 | NUR ---
MRI ABD ORDERED ON PATIENT, CESILIA WENT OVER AND CHECKED PATIENT DUE TO BODY HABITUS. HE EXCEEDS THE SIZE OF THE BORE OF THE MAGNET AND CANNOT BE DONE. PT STATED HE DOES NOT FIT IN A CLOSED MAGNET. DR BELLAMY, DR LINCOLN AND ELSIE KHAN WERE ALL NOTIFIED. EXAM WILL BE CANCELLED.
[2020-02-14 17:09] VITALS: BP 124/77
--- NOTE | 2020-02-14 20:00 | NUR ---
PATIENT RESTING IN BED WATCHING TV. NO S/S OF ACUTE DISTRESS. NO C/O AT THIS TIME. PATIENT HAS RIGHT CHEST IV, NORMAL SALINE @ 100 ML/HR. IV IS PATENT WITHOUT REDNESS, SWELLING, OR TENDERNESS. PATIENT IV IS POSITIONAL AND HE KEEPS TURNING THE PUMP OFF. PATIENT HAS ABDOMINAL PAIN, THAT NOTHING REALLY HELPS. PATEINT HAS BILATERAL BKA WITH PROSTHETICS AND WHEELCHAIR AT [facility]. PATIENT USES WHEELCHAIR TO GO THE BATHROOM AND URINAL. CALL LIGHT WITHIN REACH. WILL CONTINUE TO MONITOR.
[2020-02-14 20:44] VITALS: BP 150/75
[2020-02-15 00:48] VITALS: BP 148/80
[2020-02-15 04:00] VITALS: BP 151/78
--- NOTE | 2020-02-15 04:34 | NUR ---
I have reviewed this patient and I concur with the Shift Assessment completed by the Licensed Practical Nurse today this shift.
[2020-02-15 06:00] LABS: BASOPHILS 0.3 % (0-2); EOSINOPHILS 2.4 % (0-7); HEMATOCRIT 28.7 % (42.0-54.0); HEMOGLOBIN 9.1 g/dL (13.5-17.5); IMMATURE GRANULOCYTES 0.6 % (0-5); LYMPHOCYTES 10.9 % (15-50); MCH 29.4 pg (26.0-34.0); MCHC 31.7 g/dL (31.0-37.0); MCV 92.9 fL (80.0-100.0); MEAN PLATELET VOLUME 8.8 fL (7.4-10.4); MONOCYTES 12.6 % (2-11); NEUTROPHILS 73.2 % (40-80); PLATELET COUNT 569 10x3/uL (130-400); RBC 3.09 10x6/uL (4.20-6.10)
[2020-02-15 06:32] LABS: ALBUMIN 2.3 g/dL (3.4-5.0); ALKALINE PHOSPHATASE 68 U/L (30-120); ALT (SGPT) 12 U/L (10-68); AMYLASE - SERUM 12 U/L (25-115); BILIRUBIN - TOTAL 0.28 mg/dL (0.2-1.3); CALC OSMOLALITY 271 mosm/kg (275-300); CALCIUM 9.2 mg/dL (8.5-10.1); CARBON DIOXIDE 26.8 mmol/L (21.0-32.0); CHLORIDE - SERUM 101 mmol/L (98-107); CREATININE - SERUM 0.8 mg/dL (0.6-1.3); GLUCOSE 101 mg/dL (74-106); MAGNESIUM - SERUM 1.6 mg/dL (1.8-2.4); PHOSPHOROUS 5.2 mg/dL (2.5-4.9); POTASSIUM - SERUM 3.8 mmol/L (3.5-5.1); PROTEIN - SERUM 6.1 g/dL (6.4-8.2); SODIUM 137 mmol/L (136-145); UREA NITROGEN 7 mg/dL (7-18); eGFR NON AFRICAN AMERICAN > 90 mL/min (90-120)
[2020-02-15 06:33] LABS: LIPASE 37 U/L (73-393)
--- NOTE | 2020-02-15 07:56 | NUR ---
A/A/OX4. SITTING UP IN BED AND STATES NO NEEDS AT PRESENT TIME. DRESSING TO ABD C/D/I. SL PATENT TO LEFT INNER WRIST WITH NO REDNESS OR EDEMA AT SITE. SIDERAILS UP X 1, CALL LIGHT AND FLUIDS IN REACH, BED IN LOW LOCKED POSITION. NO REQUESTS VOICED
[2020-02-15 10:08] VITALS: BP 106/69
[2020-02-15 12:00] VITALS: BP 114/62
--- NOTE | 2020-02-15 13:36 | NUR ---
I have reviewed this patient and I concur with the Shift Assessment completed by the Licensed Practical Nurse today this shift.
[2020-02-15 16:00] VITALS: BP 132/76
[2020-02-15 20:00] VITALS: BP 105/59
--- NOTE | 2020-02-15 20:04 | NUR ---
PATIENT RESTING IN BED WITH NO S/S OF DISTRESS AND DENIES NEEDS AT THIS TIME. BED IN LOWEST POSITION AND CALL LIGHT WITHIN REACH. ENCOURAGED THE PATIENT TO CALL IF HE HAS NEEDS. WILL CONTINUE TO MONITOR.
--- NOTE | 2020-02-15 22:59 | NUR ---
PAGED SIMRAN MILLER, DRILLING ENGINEERING MANAGER, IN REGARDS TO PATIENT'S VALIUM
--- NOTE | 2020-02-15 23:00 | NUR ---
I have reviewed this patient and I concur with the Shift Assessment completed by the Licensed Practical Nurse today this shift.
[2020-02-16] VITALS: BP 119/65
[2020-02-16 04:00] VITALS: BP 107/74
[2020-02-16 06:22] LABS: BASOPHILS 0.3 % (0-2); EOSINOPHILS 2.2 % (0-7); HEMATOCRIT 28.8 % (42.0-54.0); HEMOGLOBIN 9.2 g/dL (13.5-17.5); IMMATURE GRANULOCYTES 0.7 % (0-5); LYMPHOCYTES 11.4 % (15-50); MCH 29.6 pg (26.0-34.0); MCHC 31.9 g/dL (31.0-37.0); MCV 92.6 fL (80.0-100.0); MONOCYTES 13.4 % (2-11); PLATELET COUNT 525 10x3/uL (130-400); RBC 3.11 10x6/uL (4.20-6.10); RDW 14.9 % (11.5-14.5); WBC 11.8 10x3/uL (4.8-10.8)
[2020-02-16 06:36] LABS: AMYLASE - SERUM 13 U/L (25-115); CALC OSMOLALITY 263 mosm/kg (275-300); CALCIUM 9.3 mg/dL (8.5-10.1); CARBON DIOXIDE 26.8 mmol/L (21.0-32.0); CHLORIDE - SERUM 99 mmol/L (98-107); CREATININE - SERUM 0.8 mg/dL (0.6-1.3); GLUCOSE 101 mg/dL (74-106); LIPASE 37 U/L (73-393); MAGNESIUM - SERUM 1.7 mg/dL (1.8-2.4); PHOSPHOROUS 4.6 mg/dL (2.5-4.9); SODIUM 133 mmol/L (136-145); UREA NITROGEN 7 mg/dL (7-18); eGFR NON AFRICAN AMERICAN > 90 mL/min (90-120)
--- NOTE | 2020-02-16 07:15 | NUR ---
SITTING UPRIGHT IN BED. STATES PAIN IS AT AN 8/10 IN ABDOMEN. WILL ADMINISTER PAIN MEDS ORDERED. NO OTHER REQUESTS. SL PATENT TO INNER LEFT WRIST WITH NO REDNESS OR EDEMA AT SITE. PT IS BKA BILATERALLY WITH PROSTHESIS AT BEDSIDE. USES W/C TO GET TO BATHROOM. SIDERAILS UP X 3, CALL LIGHT AND FLUIDS IN REACH AND BED IN LOW LOCKED POSITION. WILL CONTINUE POC.
[2020-02-16 09:04] VITALS: BP 104/65
[2020-02-16 12:00] VITALS: BP 127/70
--- NOTE | 2020-02-16 17:57 | NUR ---
I have reviewed this patient and I concur with the Shift Assessment completed by the Licensed Practical Nurse today this shift.
[2020-02-16 20:32] VITALS: BP 128/68
[2020-02-17 00:25] VITALS: BP 125/72
--- NOTE | 2020-02-17 01:18 | NUR ---
PATIENT IS ALERT AND ORENTED ABLE TO VOICE NEEDS AND WANTS TO STAFF. HE IS A BILATER BKA USES WHEEL CHAIR FOR AMULATION ABLE TO SELF TRANSFER WITH OUT ASSIST. ABD PAIN CONTROLED BY PRN MORPHINE AND OXY. IV TO LEFT WRIST DRESSING CDI TO ABD WHERE DRAIN REMOVED. CALL LIGHT AND WATER IN REACH.
[2020-02-17 03:02] VITALS: BP 129/82
[2020-02-17 04:36] LABS: BASOPHILS 0.4 % (0-2); EOSINOPHILS 2.7 % (0-7); HEMATOCRIT 28.5 % (42.0-54.0); HEMOGLOBIN 9.1 g/dL (13.5-17.5); IMMATURE GRANULOCYTES 0.8 % (0-5); LYMPHOCYTES 11.7 % (15-50); MCH 29.5 pg (26.0-34.0); MCHC 31.9 g/dL (31.0-37.0); MCV 92.5 fL (80.0-100.0); MEAN PLATELET VOLUME 8.8 fL (7.4-10.4); MONOCYTES 10.9 % (2-11); NEUTROPHILS 73.5 % (40-80); PLATELET COUNT 516 10x3/uL (130-400); RBC 3.08 10x6/uL (4.20-6.10); RDW 14.9 % (11.5-14.5)
[2020-02-17 04:48] LABS: CALC OSMOLALITY 257 mosm/kg (275-300); CARBON DIOXIDE 28.5 mmol/L (21.0-32.0); CHLORIDE - SERUM 96 mmol/L (98-107); CREATININE - SERUM 0.9 mg/dL (0.6-1.3); GLUCOSE 97 mg/dL (74-106); MAGNESIUM - SERUM 1.7 mg/dL (1.8-2.4); PHOSPHOROUS 4.6 mg/dL (2.5-4.9); POTASSIUM - SERUM 3.9 mmol/L (3.5-5.1); SODIUM 129 mmol/L (136-145); eGFR NON AFRICAN AMERICAN > 90 mL/min (90-120)
[2020-02-17 04:52] LABS: AMYLASE - SERUM 17 U/L (25-115); LIPASE 41 U/L (73-393); UREA NITROGEN 9 mg/dL (7-18)
--- NOTE | 2020-02-17 06:20 | NUR ---
LAB IN MAGNESIUM 1.7 FRIST DOSE OF MAGNESIUM 400MG GIVEN AT 605AM.
--- NOTE | 2020-02-17 08:06 | NUR ---
AWAKE AND ALERT. ORIENTED X3. C/O ABDOMINAL PAIN THIS AM. WILL CHECK ON PRN. LUNGS ARE CLEAR BILATERALLY, NO COUGH NOTED. SKIN IS INTACT WITHOUT REDNESS. IV TO LEFT WRIST IS PATENT WITHOUT REDNESS AT INSERTION SITE. PLACED NPO FOR TEST AT THIS TIME. DENIES NEEDS.
--- NOTE | 2020-02-17 08:35 | NUR ---
OFF UNIT VIA BED FOR TEST.
[2020-02-17 09:06] VITALS: BP 142/75
--- NOTE | 2020-02-17 11:00 | NUR ---
RETURNED FROM IR. DRAIN IN PLACE TO LEFT LOWER ABDOMEN WITH DARK DISCHARGE. WILL MONITOR.
--- NOTE | 2020-02-17 11:26 | NUR ---
REQUESTED AND GIVEN 4MG MORPHINE SLOW IVP FOR C/O ABDOMINAL PAIN LEVEL 10. WILL MONITOR.
--- NOTE | 2020-02-17 12:18 | NUR ---
VERY LITTLE RELIEF FROM MORPHINE. NOTIFIED YOSHI KAPLAN APN OF SAME. NEW ORDERS RECEIVED FOR ONE DOSE OF MORPHINE. WILL MONITOR.
[2020-02-17 12:34] VITALS: BP 142/75
--- NOTE | 2020-02-17 12:41 | NUR ---
Nutrition follow-up: Pt NPO for tests today PO intake of low fat diet has been poor - ~25% of meals- 2/2 increased pain and pain meds Labs reviewed Wt: 440# Will continue to provide food choices and honor food preferences. RDN following.
--- NOTE | 2020-02-17 14:52 | NUR ---
REFUSED LUNCH TRAY. REPORTS SOME RELIEF WITH USE OF MORPHINE. WILL GET BULB WEEDER ORDERS.
--- NOTE | 2020-02-17 15:15 | NUR ---
CONTINUES TO C/O PAIN LEVEL 8 OR MORE. SENIOR TECHNICAL ARCHITECT INITITATED AT THIS TIME. PATIENT INSTRUCTED IN USE OF SAME. ALL QUESTIONS ARE ANSWERED.
[2020-02-17 17:09] VITALS: BP 120/63
--- NOTE | 2020-02-17 17:52 | NUR ---
REPORTS PAIN IMPROVED WITH USE OF DIRECTOR OF STUDENT AFFAIRS. SUPPER SERVED IN ROOM. NO CHANGES NOTED. DENIES NEEDS.
[2020-02-17 20:00] VITALS: BP 104/63
--- NOTE | 2020-02-17 23:17 | NUR ---
REC'D. WALKING ROUNDS CHGE OF SHIFT ANGRY REQUESTING ORAL PAIN MED OXYCONTIN OR MORPHINE IV FOR PAIN INSTRUCTED NOW ON DIRECTOR CORPORATE SALES DILAUDID FOR PAIN CONTROL WANT BE GETTING OXYCONTIN STATES NO ONE TOLD ME INFORMED THAT WAS A NEW POST-OP ORDER AFTER YOUR SURGICAL PROCEDURE. WILL CONTINUE TO MONITOR FOR ANY CHGES AND FOLLOW CURRENT PLAN OF CARE
[2020-02-18 05:53] LABS: BASOPHILS 0.2 % (0-2); EOSINOPHILS 2.9 % (0-7); HEMATOCRIT 27.5 % (42.0-54.0); HEMOGLOBIN 8.8 g/dL (13.5-17.5); IMMATURE GRANULOCYTES 0.5 % (0-5); LYMPHOCYTES 11.8 % (15-50); MCH 29.4 pg (26.0-34.0); MEAN PLATELET VOLUME 8.5 fL (7.4-10.4); MONOCYTES 12.7 % (2-11); NEUTROPHILS 71.9 % (40-80); PLATELET COUNT 453 10x3/uL (130-400); RBC 2.99 10x6/uL (4.20-6.10); RDW 14.9 % (11.5-14.5); WBC 9.6 10x3/uL (4.8-10.8)
[2020-02-18 06:58] LABS: CALC OSMOLALITY 265 mosm/kg (275-300); CALCIUM 9.3 mg/dL (8.5-10.1); CARBON DIOXIDE 25.8 mmol/L (21.0-32.0); CHLORIDE - SERUM 98 mmol/L (98-107); CREATININE - SERUM 0.7 mg/dL (0.6-1.3); GLUCOSE 111 mg/dL (74-106); MAGNESIUM - SERUM 1.6 mg/dL (1.8-2.4); PHOSPHOROUS 5.1 mg/dL (2.5-4.9); SODIUM 133 mmol/L (136-145); UREA NITROGEN 9 mg/dL (7-18); eGFR NON AFRICAN AMERICAN > 90 mL/min (90-120)
[2020-02-18 06:59] LABS: POTASSIUM - SERUM 4.8 mmol/L (3.5-5.1)
--- NOTE | 2020-02-18 08:05 | NUR ---
PATIENT ALERT AND ORIENTED. SITTING UP WATCHING TV. RESPIRATIONS EVEN NON LABORED. NO SIGNS OF DISTRESS NOTED. ON CONTACT ISOLATION FOR VRE/MRSA. BILATERAL BKA WITH PROTHESIS. BILI DRAIN SITE CLEAN DRY INTACT. CONTENTS READ/NICOLE. BLACKSMITH HAMMER OPERATOR DILAUDED. IV DC. CONTACTED VASCULAR TO PLACE NEW IV. DENIES FURTHER NEEDS. CALL LIGHT IN REACH. SIDE RAILS UP X3. WILL CONTINUE TO MONITOR.
[2020-02-18 08:35] VITALS: BP 105/89
--- NOTE | 2020-02-18 08:40 | MORECARE ---
CASE MANAGEMENT DISCHARGE SUMMARY PATIENT: ELIAS BOWEN UNIT: [id number] ADM DATE: 02/04/20 AGE: 49 : 66 SEX: M ROOM/BED: D.2201 AUTHOR: DOLLY COLLADO PHYSICIAN: REFERRING PHYSICIAN: JOB CUNNINGHAM MD DATE OF SERVICE: 02/18/20 Discharge Plan Patient Name: ELIAS BOWEN [facility] [facility] 1970 Planned Disposition: Home or Self Care Anticipated Discharge Date: Discharge Date: Expected LOS: Initial Reviewer: [email or web address] Initial Review Date: 02/04/2020 Generated: 02/18/20 9:40 am DCPIA - Discharge Planning Initial Assessment Updated by [email or web address]: Betzaida Hart on 02/18/20 8:36 am * Is the patient Alert and Oriented? Yes * How many steps to enter\exit or inside your home? ramp * PCP JOSEPH SMITH * Pharmacy [facility] * Preadmission Environment Home Alone * ADLs Independent * Equipment Bedside Commode CPAP Rolling Walker Shower Chair Walker Wheelchair * List name and contact numbers for known caregivers / representatives who currently or will assist patient after discharge: ENZO GRADNA [phone] * Verbal permission to speak to the caregivers and representatives has been obtained from the patient. N/A * Community resources currently utilized None * Additional services required to return to the preadmission environment? No * Can the patient safely return to the preadmission environment? Yes * Has this patient been hospitalized within the prior 30 days at any hospital? Yes Patient Name: ELIAS BOWEN Page 31022 at 0840 All edits/amendments must be made on the electronic document DICTATION DATE: 02/18/20839 ROUND KILN DRAWER: VILMA 02/18/20839 RPT#: [id number] DC DATE: STATUS: ADM IN [facility] [address] [place] [address] END OF REPORT
--- NOTE | 2020-02-18 08:56 | MORECARE ---
CASE MANAGEMENT DISCHARGE SUMMARY PATIENT: ELIAS BOWEN UNIT: [id number] ADM DATE: 02/04/20 AGE: 49 : 66 SEX: M ROOM/BED: D.2201 AUTHOR: DOLLY COLLADO PHYSICIAN: REFERRING PHYSICIAN: JOB CUNNINGHAM MD DATE OF SERVICE: 02/18/20 Discharge Plan Patient Name: ELIAS BOWEN Facility: [facility]:[place] : 1970 Planned Disposition: Home or Self Care Anticipated Discharge Date: Discharge Date: Expected LOS: Initial Reviewer: [email or web address] Initial Review Date: 02/04/2020 Generated: 02/18/20 9:55 am Comments DCP- Discharge Planning Updated by [email or web address]: Betzaida Hart on 02/18/20 7:[address] Patient Name: ELIAS BOWEN Admission Status: Elective Accout number: [id number] Admission Date: 02-04-2020 : 1970 Admission Diagnosis:UNSPECIFIED ABDOMINAL PAIN Attending: CONTRERAS CUNNINGHAM Current LOS: 14 Anticipated DC Date: Planned Disposition: Home or Self Care Primary Insurance: MEDICARE A & B Discharge Planning Comments: CM met with patient to complete initial dc planning assessment. CM educated patient on the CM role and verbal consent given by patient to complete assessment. Patient lives at home by himself where he was independent with his care. His physical address is [address] [place] [address]. He stated that his mother will be his new autos delivery driver home. At discharge patient plans to return home and feels this is a safe discharge. CM discussed availability of home health, rehab services, and medical equipment. He said that he has a walker, wheelchair, shower chair, prosthetics, & Cpap at home. He also stated that if he wanted home health he could have, but he does not want it at this time. Patient denied known discharge needs at this time. CM will continue to follow and will assist as needed with dc plans/needs. Financial Reporting Accountant: Betzaida Hart DCPIA - Discharge Planning Initial Assessment Updated by [email or web address]: Betzaida Hart on 02/18/20 8:36 am * Is the patient Alert and Oriented? Yes * How many steps to enter\exit or inside your home? ramp * PCP JOSEPH SMITH * [facility] * Preadmission Environment Home Alone * ADLs Independent * Equipment Bedside Commode CPAP Rolling Walker Shower Chair Walker Wheelchair * List name and contact numbers for known caregivers / representatives who currently or will assist patient after discharge: ENZO GRANDA [phone] * Verbal permission to speak to the caregivers and representatives has been obtained from the patient. N/A * Community resources currently utilized None * Additional services required to return to the preadmission environment? No * Can the patient safely return to the preadmission environment? Yes * Has this patient been hospitalized within the prior 30 days at any hospital? Yes Last DP export: 02/18/20 7:40 a Patient Name: ELIAS BOWEN Page 33770 at 0856 All edits/amendments must be made on the electronic document DICTATION DATE: 02/18/20854 SIX HORSE HITCH DRIVER: VILMA 02/18/20854 RPT#: [id number] DC DATE: STATUS: ADM IN [facility] [address] [place] [address] END OF REPORT
[2020-02-18 13:03] VITALS: BP 104/62
--- NOTE | 2020-02-18 15:38 | NUR ---
I have reviewed this patient and I concur with the Shift Assessment completed by the Licensed Practical Nurse today this shift.
--- NOTE | 2020-02-18 15:50 | NUR ---
PATIENT ALERT AND ORIENTED. RESPIRATIONS EVEN NON LABORED. NO SIGNS OF DISTRESS NOTED. FAMILY AT BEDSIDE. ON INVAS TECH DILAUDED. DENIES FURTHER NEEDS. SIDE RAILS UP X3. CALL LIGHT IN REACH. WILL CONTINUE TO MONITOR FOR SAFETY.
[2020-02-18 17:17] VITALS: BP 120/70
--- NOTE | 2020-02-18 18:35 | NUR ---
PATIENT ALERT AND ORIENTED. RESTING QUIETLY IN BED, SITTING UP. RESPIRATIONS EVEN NON LABORED.NO SIGNS OF DISTRESS NOTED. DENIES FURTHER NEEDS. WILL CONTINUE TO MONITOR FOR SAFETY.
[2020-02-18 20:00] VITALS: BP 104/65
--- NOTE | 2020-02-18 23:06 | NUR ---
REC'D CHGE OF SHIFT WALKING ROUNDS SITING UPRIGHT POSITION.EYES CLOSED RESP DEEP AND EVEN.CONTACT ISOLATION CONTINUES.WILL CONTINUE TO MONITOR FOR ANY CHGES AND FOLLOW CURRENT PLAN OF CARE.
[2020-02-19] VITALS: BP 105/70
[2020-02-19 04:00] VITALS: BP 109/73
[2020-02-19 08:21] VITALS: BP 109/68
[2020-02-19 08:46] LABS: BASOPHILS 0.2 % (0-2); EOSINOPHILS 2.8 % (0-7); HEMATOCRIT 28.5 % (42.0-54.0); HEMOGLOBIN 9.2 g/dL (13.5-17.5); IMMATURE GRANULOCYTES 0.4 % (0-5); LYMPHOCYTES 9.7 % (15-50); MCH 29.7 pg (26.0-34.0); MCHC 32.3 g/dL (31.0-37.0); MCV 91.9 fL (80.0-100.0); MEAN PLATELET VOLUME 8.9 fL (7.4-10.4); MONOCYTES 15.2 % (2-11); NEUTROPHILS 71.7 % (40-80); PLATELET COUNT 483 10x3/uL (130-400); WBC 10.8 10x3/uL (4.8-10.8)
[2020-02-19 09:12] LABS: CALC OSMOLALITY 259 mosm/kg (275-300); CALCIUM 9.1 mg/dL (8.5-10.1); CARBON DIOXIDE 28.4 mmol/L (21.0-32.0); CHLORIDE - SERUM 96 mmol/L (98-107); CREATININE - SERUM 0.7 mg/dL (0.6-1.3); GLUCOSE 114 mg/dL (74-106); MAGNESIUM - SERUM 1.5 mg/dL (1.8-2.4); PHOSPHOROUS 4.6 mg/dL (2.5-4.9); POTASSIUM - SERUM 4.4 mmol/L (3.5-5.1); SODIUM 130 mmol/L (136-145); UREA NITROGEN 8 mg/dL (7-18); eGFR NON AFRICAN AMERICAN > 90 mL/min (90-120)
[2020-02-19 11:49] VITALS: BP 135/86
[2020-02-19 15:47] VITALS: BP 119/57
--- NOTE | 2020-02-19 16:18 | NUR ---
I have reviewed this patient and I concur with the Shift Assessment completed by the Licensed Practical Nurse today this shift.
--- NOTE | 2020-02-19 16:27 | NUR ---
PATIENT ALERT AND ORIENTED. RESTING QUIETLY SITTING UP IN BED WATCHING TV. RESPIRATIONS EVEN NONLABORED. NO SIGNS OF DISTRESS NOTED. MEDS GIVEN AND TOLERATED WELL. 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 ON 1500 FLUID RESTRICTION. BILI DRAIN IN PLACE NICOLE COLOR. ON DIALYSIS BIOMED TECHNICIAN PUMP DILAUDED 0.4 Q 3HR. DENIES FURTHER NEEDS. SIDE RAILS UP X4. CALL LIGHT IN REACH. WILL CONTINUE TO MONITOR FOR SAFETY.
--- NOTE | 2020-02-19 18:51 | NUR ---
PATIENT ALERT AND ORIENTED RESTING QUIETLYIN BED SITTING UP. WATCHING TV. RESPIRATIONS EVEN NONLABORED. NO SIGNS OF DISTRESS NOTED. DENIES FURTHER NEEDS. SIDE RAILS UP X4. CALL LIGHT IN REACH. WILL CONTINUE TO MONITOR FOR SAFETY.
[2020-02-19 20:00] VITALS: BP 155/94
--- NOTE | 2020-02-19 20:43 | NUR ---
REC'D WALKING ROUNDS CHGE OF SHIFTSITTING IN BED WATCHING TV. CONTACT ISOLATION CONTINUES. INSTRUCTED NPO AT MIDNITE FOR EGD. PARTIAL UPSET BECAUSE WAS NOT TOLD EARLIER.WILL CONTINUE TO MONITOR FOR ANY FURTHER CHGES AND FOLLOW CURRENT PLAN OF CARE
--- NOTE | 2020-02-20 03:44 | NUR ---
I have reviewed this patient and I concur with the Shift Assessment completed by the Licensed Practical Nurse today this shift.
[2020-02-20 04:00] VITALS: BP 129/70
[2020-02-20 05:06] LABS: BASOPHILS 0.2 % (0-2); EOSINOPHILS 2.7 % (0-7); HEMATOCRIT 27.5 % (42.0-54.0); HEMOGLOBIN 8.7 g/dL (13.5-17.5); IMMATURE GRANULOCYTES 0.3 % (0-5); MCHC 31.6 g/dL (31.0-37.0); MCV 91.7 fL (80.0-100.0); MEAN PLATELET VOLUME 9.3 fL (7.4-10.4); MONOCYTES 12.9 % (2-11); NEUTROPHILS 70.9 % (40-80); PLATELET COUNT 474 10x3/uL (130-400); WBC 10.9 10x3/uL (4.8-10.8)
[2020-02-20 05:29] LABS: CALC OSMOLALITY 262 mosm/kg (275-300); CALCIUM 9.4 mg/dL (8.5-10.1); CARBON DIOXIDE 30.1 mmol/L (21.0-32.0); CHLORIDE - SERUM 98 mmol/L (98-107); CREATININE - SERUM 0.8 mg/dL (0.6-1.3); GLUCOSE 97 mg/dL (74-106); MAGNESIUM - SERUM 1.6 mg/dL (1.8-2.4); PHOSPHOROUS 3.7 mg/dL (2.5-4.9); SODIUM 132 mmol/L (136-145); UREA NITROGEN 7 mg/dL (7-18); eGFR NON AFRICAN AMERICAN > 90 mL/min (90-120)
[2020-02-20 08:40] VITALS: BP 126/73
[2020-02-20 12:41] VITALS: BP 127/81
--- NOTE | 2020-02-20 12:41 | NUR ---
SITTING UP IN BED,WITHOUT DISTRESS.
--- NOTE | 2020-02-20 15:16 | MORECARE ---
CASE MANAGEMENT DISCHARGE SUMMARY PATIENT: ELIAS BOWEN UNIT: [id number] ADM DATE: 02/04/20 AGE: 49 : 66 SEX: M ROOM/BED: D.2201 AUTHOR: DOLLY COLLADO PHYSICIAN: REFERRING PHYSICIAN: JOB CUNNINGHAM MD DATE OF SERVICE: 02/20/20 Discharge Plan Patient Name: ELIAS BOWEN Facility: [facility]:[place] : 1970 Planned Disposition: Home or Self Care Anticipated Discharge Date: Discharge Date: Expected LOS: Initial Reviewer: [email or web address] Initial Review Date: 02/04/2020 Generated: 02/20/20 4:15 pm Comments DCP- Discharge Planning Updated by [email or web address]: Betzaida Hart on 02/20/20 2:[address] SPOKE WITH PATIENT AND MOTHER ABOUT HH. HIS MOTHER STATED THAT DR CUNNINGHAM SAID THAT HE WOULD RETURN TO INPATIENT REHAB TO FINISH HIS THERAPY BEFORE GOING HOME DCP- Discharge Planning Updated by [email or web address]: Betzaida Hart on 02/18/20 7:[address] Patient Name: ELIAS BOWEN Admission Status: Elective Accout number: [id number] Admission Date: 02-04-2020 : 1970 Admission Diagnosis:UNSPECIFIED ABDOMINAL PAIN Attending: CONTRERAS CUNNINGHAM Current LOS: 14 Anticipated DC Date: Planned Disposition: Home or Self Care Primary Insurance: MEDICARE A & B Discharge Planning Comments: CM met with patient to complete initial dc planning assessment. CM educated patient on the CM role and verbal consent given by patient to complete assessment. Patient lives at home by himself where he was independent with his care. His physical address is [address] [place] [address]. He stated that his mother will be his courtesy van driver home. At discharge patient plans to return home and feels this is a safe discharge. CM discussed availability of home health, rehab services, and medical equipment. He said that he has a walker, wheelchair, shower chair, prosthetics, & Cpap at home. He also stated that if he wanted home health he could have, but he does not want it at this time. Patient denied known discharge needs at this time. CM will continue to follow and will assist as needed with dc plans/needs. Block Sawyer: Betzaida Hart DCPIA - Discharge Planning Initial Assessment Updated by [email or web address]: Betzaida Hart on 02/18/20 8:36 am * Is the patient Alert and Oriented? Yes * How many steps to enter\exit or inside your home? ramp * PCP JOSEPH SMITH * [facility] * Preadmission Environment Home Alone * ADLs Independent * Equipment Bedside Commode CPAP Rolling Walker Shower Chair Walker Wheelchair * List name and contact numbers for known caregivers / representatives who currently or will assist patient after discharge: ENZO GRANDA [phone] * Verbal permission to speak to the caregivers and representatives has been obtained from the patient. N/A * Community resources currently utilized None * Additional services required to return to the preadmission environment? No * Can the patient safely return to the preadmission environment? Yes * Has this patient been hospitalized within the prior 30 days at any hospital? Yes Last DP export: 02/18/20 7:56 a Patient Name: ELIAS BOWEN Page [id number] at 1516 All edits/amendments must be made on the electronic document DICTATION DATE: 02/20/20 1515 HAND KISS SETTER: VILMA 02/20/205 RPT#: [id number] DC DATE: STATUS: ADM IN [facility] [address] [place] [address] END OF REPORT
--- NOTE | 2020-02-20 16:13 | NUR ---
PT OFF FLOOR TO GI LAB FOR EGD AT THIS TIME.
[2020-02-20 16:21] VITALS: BP 123/79
[2020-02-20 17:31] VITALS: BP 125/84
--- NOTE | 2020-02-20 17:33 | NUR ---
PATIENT RETURNED FROM PROCEDURE. VITALS STABLE. WILL CONTINUE TO MONITOR.
[2020-02-20 20:00] VITALS: BP 131/59
[2020-02-21] VITALS: BP 124/70
--- NOTE | 2020-02-21 01:45 | NUR ---
ASSESSED AT THE BEGINNING OF THE SHIFT. PT IS ALERT AND ORIENTED, ABLE TO VERBALIZE NEEDS. HE HAS A DRAIN TO THE LEFT SIDE WHICH WAS FLUSHED PER ORDERS WITH DRAINAGE. HE ALSO HAS A URINAL AT THE BEDSIDE AND IS ON ROOM AIR. 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 HE HAS A DILAUDID BOARDER MACHINE WHICH WAS RENEWED AFTER IT TIMED OUT. HIS LEFT ARM HAS HIS IV SITE AND THE OLD RIGHT SITE WAS D/C'D AT WHEN MEDS WERE GIVEN. HE WAS RUNNING A LOW TEMP OF 100.8 AND WE WENT AHEAD AND GAVE HIM TYLENOL.AT THIS TIME HE IS ASLEEP WITH NO DISTRESS NOTED. HE REMAINS IN ISOLATION.
[2020-02-21 04:00] VITALS: BP 113/68
[2020-02-21 08:49] VITALS: BP 149/84
[2020-02-21 09:42] LABS: BASOPHILS 0.3 % (0-2); EOSINOPHILS 3.4 % (0-7); HEMATOCRIT 29.6 % (42.0-54.0); HEMOGLOBIN 9.4 g/dL (13.5-17.5); IMMATURE GRANULOCYTES 0.3 % (0-5); LYMPHOCYTES 6.7 % (15-50); MCH 29.3 pg (26.0-34.0); MCHC 31.8 g/dL (31.0-37.0); MCV 92.2 fL (80.0-100.0); MEAN PLATELET VOLUME 9.8 fL (7.4-10.4); MONOCYTES 13.7 % (2-11); NEUTROPHILS 75.6 % (40-80); PLATELET COUNT 436 10x3/uL (130-400); RBC 3.21 10x6/uL (4.20-6.10); RDW 15.4 % (11.5-14.5); WBC 10.9 10x3/uL (4.8-10.8)
[2020-02-21 10:01] LABS: CALC OSMOLALITY 260 mosm/kg (275-300); CALCIUM 9.3 mg/dL (8.5-10.1); CARBON DIOXIDE 26.3 mmol/L (21.0-32.0); CHLORIDE - SERUM 98 mmol/L (98-107); CREATININE - SERUM 0.7 mg/dL (0.6-1.3); GLUCOSE 105 mg/dL (74-106); POTASSIUM - SERUM 4.1 mmol/L (3.5-5.1); SODIUM 131 mmol/L (136-145); UREA NITROGEN 6 mg/dL (7-18); eGFR NON AFRICAN AMERICAN > 90 mL/min (90-120)
--- NOTE | 2020-02-21 11:38 | NUR ---
Rehab Prescreening Consult recieved and the chart has been reviewed. He is known by phillip FRITZ for a previous stay. The last PT note was on 02/08/20 when he adamantly refused therapy for the 3rd time. A new referral has been ordered but still pending. He will have to be willing to participate in the required 3 hrs daily of therapy before he will be considered for readmit. Discussed with the CM during the IDT. Lolita Del Castillo RN Clinical liaison, Rehab
[2020-02-21 12:47] VITALS: BP 129/83
--- NOTE | 2020-02-21 13:20 | NUR ---
PT SITTING UP IN BED. NO NEEDS AT THIS TIME.
--- NOTE | 2020-02-21 13:35 | NUR ---
Nutrition Follow-up: Diet: Regular + Ensure TID - NPO after midnight PO intake: 50-75% Last BM: 02/19/20. Wt: 440# (02/05/20), no new weight Meds noted: lactulose, reglan, senokot, NS@100, MagOx Labs noted: Na 131(L) Recommend continue Regular diet as tolerated. Continue oral nutrition supplements with PO diet. RD following.
[2020-02-21 16:00] VITALS: BP 117/64
[2020-02-21 20:00] VITALS: BP 130/83
[2020-02-22] VITALS: BP 120/79
[2020-02-22 04:00] VITALS: BP 110/53
[2020-02-22 06:44] LABS: CALC OSMOLALITY 262 mosm/kg (275-300); CALCIUM 8.9 mg/dL (8.5-10.1); CARBON DIOXIDE 25.5 mmol/L (21.0-32.0); CHLORIDE - SERUM 99 mmol/L (98-107); CREATININE - SERUM 0.7 mg/dL (0.6-1.3); GLUCOSE 93 mg/dL (74-106); SODIUM 133 mmol/L (136-145); UREA NITROGEN 5 mg/dL (7-18); eGFR NON AFRICAN AMERICAN > 90 mL/min (90-120)
[2020-02-22 06:58] LABS: BASOPHILS 0.3 % (0-2); EOSINOPHILS 4.8 % (0-7); HEMATOCRIT 26.5 % (42.0-54.0); HEMOGLOBIN 8.4 g/dL (13.5-17.5); IMMATURE GRANULOCYTES 0.2 % (0-5); LYMPHOCYTES 10.1 % (15-50); MCH 29.2 pg (26.0-34.0); MCHC 31.7 g/dL (31.0-37.0); MEAN PLATELET VOLUME 9.3 fL (7.4-10.4); MONOCYTES 14.2 % (2-11); NEUTROPHILS 70.4 % (40-80); PLATELET COUNT 394 10x3/uL (130-400); RBC 2.88 10x6/uL (4.20-6.10); RDW 15.5 % (11.5-14.5); WBC 9.9 10x3/uL (4.8-10.8)
[2020-02-22 09:18] VITALS: BP 114/50
[2020-02-22 13:21] VITALS: BP 114/62
[2020-02-22 16:35] VITALS: BP 134/66
--- NOTE | 2020-02-22 19:15 | NUR ---
PATIENT ALERT AND ORIENTED WHEN ENTERING THE ROOM. PATIENT HAS FLAT AFFECT. SPOKE WITH PATIENT AT LENGTH. PROVIDED SUPPORT. PATIENT IN BETTER SPIRITS WHEN LEAVING ROOM. ASSESSMENT COMPLETED. SEE DOCUMENATION. LEFT SIDED DRAIN CURRENTLY CONTAINS PURULENT DRAINAGE. DISCUSSED WITH PATIENT. IV IS INFUSING AT PRESCRIBED LIMITS. DILAUDID PER ORDERS FOR PAIN CONTROL. CALL LIGHT CLOSE TO PATIENT. DENIES FURTHER NEEDS AT THIS TIME. CPOC.
[2020-02-22 20:00] VITALS: BP 125/76
--- NOTE | 2020-02-22 22:07 | NUR ---
DILAUDID SYRINGE EMPTY. CHANGED PER ORDER. PATIENT REQUESTS BOLUS DOSE FOR PAIN CONTROL. ADMINISTERED PER ORDER. CALL LIGHT REMAINS CLOSE. CPOC.
--- NOTE | 2020-02-23 01:08 | NUR ---
RESTING WITH NO SIGNS OR SYMPTOMS OF DISTRESS AT THIS TIME. CALL LIGHT REMAINS CLOSE TO PATIENT. CPOC.
[2020-02-23 04:00] VITALS: BP 131/76
[2020-02-23 05:34] LABS: BASOPHILS 0.2 % (0-2); EOSINOPHILS 5.8 % (0-7); HEMATOCRIT 27.7 % (42.0-54.0); HEMOGLOBIN 8.6 g/dL (13.5-17.5); IMMATURE GRANULOCYTES 0.2 % (0-5); LYMPHOCYTES 11.2 % (15-50); MCH 28.5 pg (26.0-34.0); MCV 91.7 fL (80.0-100.0); MONOCYTES 13.3 % (2-11); NEUTROPHILS 69.3 % (40-80); PLATELET COUNT 419 10x3/uL (130-400); RBC 3.02 10x6/uL (4.20-6.10); RDW 15.4 % (11.5-14.5); WBC 9.1 10x3/uL (4.8-10.8)
[2020-02-23 05:40] LABS: CALC OSMOLALITY 271 mosm/kg (275-300); CHLORIDE - SERUM 104 mmol/L (98-107); CREATININE - SERUM 0.7 mg/dL (0.6-1.3); GLUCOSE 108 mg/dL (74-106); POTASSIUM - SERUM 3.9 mmol/L (3.5-5.1); SODIUM 137 mmol/L (136-145); UREA NITROGEN 5 mg/dL (7-18); eGFR NON AFRICAN AMERICAN > 90 mL/min (90-120)
--- NOTE | 2020-02-23 05:51 | NUR ---
ADMINISTERING MORNING MEDS. PATIENT IRRITABLE THIS AM. STATES "GIVE ME EVERYTHING NOW." ADMINISTERED MEDS AND INQUIRED ABOUT BOWEL MOVEMENTS. PATIENT STATES "THE LAST ONE WAS A FEW DAYS AGO. IM NOT EATING MUCH." ASKED PATIENT WHAT TYPE OF BOWEL MOVEMENT IT WAS, PATIENT STATES "IT GENIE ALRIGHT" PATIENT DID NOT GIVE ANY MORE DESCRIPTIONS.
[2020-02-23 09:38] VITALS: BP 142/78
[2020-02-23 12:59] VITALS: BP 137/77
[2020-02-23 15:50] VITALS: BP 124/81
--- NOTE | 2020-02-23 19:05 | NUR ---
PATIENT ALERT AND ORIENTED X 4. PATIENT SITTING UP IN BED. ASSISTED PATIENT WITH PUTTING SHORTS ON. PATIENT HAS PATENT IV TO THE LEFT FOREARM. ABDOMINAL DRESSING CDI WITH PSEUDO DRAIN TO THE LEFT SIDE WITH PURULENT DRAINAGE NOTED. PATIENT ASKS NURSE WHEN PAIN MEDICINE IS DUE, REQUESTS OXY WHEN AVAILABLE FOR 6/10 PAIN AT THIS TIME. ASSESSMENT COMPELTED. SEE CHART. DENIES FURTHER NEEDS AT THIS TIME. CPOC.
[2020-02-23 20:00] VITALS: BP 142/80
--- NOTE | 2020-02-24 03:45 | NUR ---
RESTING WITH NO SIGNS OR SYMPTOMS OF DISTRESS AT THIS TIME. CPOC.
[2020-02-24 04:00] VITALS: BP 123/75
[2020-02-24 05:42] LABS: BASOPHILS 0.3 % (0-2); EOSINOPHILS 5.6 % (0-7); HEMATOCRIT 26.7 % (42.0-54.0); HEMOGLOBIN 8.5 g/dL (13.5-17.5); IMMATURE GRANULOCYTES 0.2 % (0-5); LYMPHOCYTES 12.5 % (15-50); MCHC 31.8 g/dL (31.0-37.0); MCV 91.1 fL (80.0-100.0); MEAN PLATELET VOLUME 8.8 fL (7.4-10.4); MONOCYTES 12.5 % (2-11); NEUTROPHILS 68.9 % (40-80); PLATELET COUNT 388 10x3/uL (130-400); RBC 2.93 10x6/uL (4.20-6.10); RDW 15.5 % (11.5-14.5); WBC 10.4 10x3/uL (4.8-10.8)
[2020-02-24 05:52] LABS: CALC OSMOLALITY 268 mosm/kg (275-300); CARBON DIOXIDE 27.9 mmol/L (21.0-32.0); CHLORIDE - SERUM 102 mmol/L (98-107); CREATININE - SERUM 0.7 mg/dL (0.6-1.3); GLUCOSE 103 mg/dL (74-106); POTASSIUM - SERUM 3.6 mmol/L (3.5-5.1); SODIUM 136 mmol/L (136-145); UREA NITROGEN 5 mg/dL (7-18); eGFR NON AFRICAN AMERICAN > 90 mL/min (90-120)
[2020-02-24 08:00] VITALS: BP 136/72
--- NOTE | 2020-02-24 10:50 | NUR ---
ASSESSMENT PER FLOW SHEET. AM MEDS.PATIENT SITTING UP IN BED WITHOUT DISTRESS.PAIN MEDS ORDERED PER MAR FOR PAIN 8/10 SCALE TO SIDE.NURIA WITH IR IN ROOM TO FLUSH BILI DRAIN WITH TPA.PATIENT DECLINES TO TURN AND LET ME INSPECT SKIN ON BUTTOCKS.ISOLATION MAINTAINED
[2020-02-24 11:00] VITALS: BP 127/78
--- NOTE | 2020-02-24 16:18 | NUR ---
HAS BEEN WITHOUT NEEDS,WITHOUT DISTRESS.ISOLATION MAINTAINED
[2020-02-24 16:40] VITALS: BP 127/79
[2020-02-24 20:00] VITALS: BP 130/65
[2020-02-25] VITALS: BP 135/70
--- NOTE | 2020-02-25 01:20 | NUR ---
ENTERED ROOM IN RESPONSE TO PT RELAYING TO AID NEED FOR PAIN MEDICINE. PT WAS SLEEPING SITTING UP. AWOKEN TO SOUND OF MY VOICED. REPORTS PAIN OF 10/10. CTM.
[2020-02-25 04:00] VITALS: BP 101/59
--- NOTE | 2020-02-25 04:28 | NUR ---
PT REQUESTS IV PAIN MEDICATION NOT BE DILUTED. INFORMED PT MEDICATION MUST BE DILUTED WITH SALINE.
[2020-02-25 06:49] LABS: BASOPHILS 0.3 % (0-2); EOSINOPHILS 6.3 % (0-7); HEMATOCRIT 28.2 % (42.0-54.0); HEMOGLOBIN 8.9 g/dL (13.5-17.5); IMMATURE GRANULOCYTES 0.3 % (0-5); LYMPHOCYTES 9.7 % (15-50); MCH 28.8 pg (26.0-34.0); MCHC 31.6 g/dL (31.0-37.0); MCV 91.3 fL (80.0-100.0); MEAN PLATELET VOLUME 9.3 fL (7.4-10.4); MONOCYTES 13.6 % (2-11); NEUTROPHILS 69.8 % (40-80); PLATELET COUNT 407 10x3/uL (130-400); RBC 3.09 10x6/uL (4.20-6.10); RDW 15.8 % (11.5-14.5); WBC 11.5 10x3/uL (4.8-10.8)
[2020-02-25 07:03] LABS: CALC OSMOLALITY 264 mosm/kg (275-300); CALCIUM 9.3 mg/dL (8.5-10.1); CARBON DIOXIDE 26.7 mmol/L (21.0-32.0); CHLORIDE - SERUM 99 mmol/L (98-107); CREATININE - SERUM 0.8 mg/dL (0.6-1.3); GLUCOSE 105 mg/dL (74-106); POTASSIUM - SERUM 3.6 mmol/L (3.5-5.1); SODIUM 134 mmol/L (136-145); UREA NITROGEN 4 mg/dL (7-18); eGFR NON AFRICAN AMERICAN > 90 mL/min (90-120)
[2020-02-25 09:15] VITALS: BP 120/75
--- NOTE | 2020-02-25 10:07 | MORECARE ---
CASE MANAGEMENT DISCHARGE SUMMARY PATIENT: ELIAS BOWEN UNIT: [id number] ADM DATE: 02/04/20 AGE: 49 : 66 SEX: M ROOM/BED: D.2201 AUTHOR: HEAVENDOC PHYSICIAN: REFERRING PHYSICIAN: JOB CUNNINGHAM MD DATE OF SERVICE: 02/25/20 Discharge Plan Patient Name: ELIAS BOWEN Facility: [facility]:[place] : 1970 Planned Disposition: Home or Self Care Anticipated Discharge Date: Discharge Date: Expected LOS: Initial Reviewer: [email or web address] Initial Review Date: 02/04/2020 Generated: 02/25/20 11:06 am Comments DCP- Discharge Planning Updated by [email or web address]: Betzaida Hart on 02/25/20 9:[address] spoke with patient about going home. he does not want home health, he stated that he he does not have the drain anymore. he did c/o red area on his bottom. I asked if he wanted hh for that & he declined that. I asked him about rehab and he just wants to get out of here and go home. His mom will be his sprinkler truck driver home. Declination of HH services signed IMM served and explained. CM to follow and assist with DC planning as needed. DCP- Discharge Planning Updated by [email or web address]: Betzaida Hart on 02/20/20 2:[address] SPOKE WITH PATIENT AND MOTHER ABOUT HH. HIS MOTHER STATED THAT DR CUNNINGHAM SAID THAT HE WOULD RETURN TO INPATIENT REHAB TO FINISH HIS THERAPY BEFORE GOING HOME DCP- Discharge Planning Updated by [email or web address]: Betzaida Hart on 02/18/20 7:[address] Patient Name: ELIAS BOWEN Admission Status: Elective Accout number: [id number] Admission Date: 02-04-2020 : 1970 Admission Diagnosis:UNSPECIFIED ABDOMINAL PAIN Attending: CONTRERAS CUNNINGHAM Current LOS: 14 Anticipated DC Date: Planned Disposition: Home or Self Care Primary Insurance: MEDICARE A & B Discharge Planning Comments: CM met with patient to complete initial dc planning assessment. CM educated patient on the CM role and verbal consent given by patient to complete assessment. Patient lives at home by himself where he was independent with his care. His physical address is [address] [place] [address]. He stated that his mother will be his sprinkler truck driver home. At discharge patient plans to return home and feels this is a safe discharge. CM discussed availability of home health, rehab services, and medical equipment. He said that he has a walker, wheelchair, shower chair, prosthetics, & Cpap at home. He also stated that if he wanted home health he could have, but he does not want it at this time. Patient denied known discharge needs at this time. CM will continue to follow and will assist as needed with dc plans/needs. Air Conditioning Specialist: Betzaida Hart DCPIA - Discharge Planning Initial Assessment Updated by [email or web address]: Betzaida Hart on 02/18/20 8:36 am * Is the patient Alert and Oriented? Yes * How many steps to enter\exit or inside your home? ramp * PCP JOSEPH SMITH * [facility] * Preadmission Environment Home Alone * ADLs Independent * Equipment Bedside Commode CPAP Rolling Walker Shower Chair Walker Wheelchair * List name and contact numbers for known caregivers / representatives who currently or will assist patient after discharge: ENZO GRANDA [phone] * Verbal permission to speak to the caregivers and representatives has been obtained from the patient. N/A * Community resources currently utilized None * Additional services required to return to the preadmission environment? No * Can the patient safely return to the preadmission environment? Yes * Has this patient been hospitalized within the prior 30 days at any hospital? Yes Coverage Notice Reviewer: [email or web address] Dameon Hart Notice Issued Date-Time: 02/25/2020 9:20 Notice Type: Patient Choice Letter Notice Delivered To: Patient Relationship to Patient: Engineering Project Manager Name: Delivery Method: HAND - Hand Delivered Vanessa Days: Prior Verbal Notification: Recipient Understood Notice: Yes Recipient Signature: Yes Med Rec Note Co-signed by Attending: Coverage Notice Comment: does not want home health Reviewer: [email or web address] Dameon Hart Notice Issued Date-Time: 02/25/2020 9:20 Notice Type: IM Discharge Notice Notice Delivered To: Patient Relationship to Patient: Engineering Project Manager Name: Delivery Method: HAND - Hand Delivered Vanessa Days: Prior Verbal Notification: Recipient Understood Notice: Yes Recipient Signature: Yes Med Rec Note Co-signed by Attending: Coverage Notice Comment: Last DP export: 02/20/20 2:16 p Patient Name: ELIAS BOWEN Page [id number] at 1007 All edits/amendments must be made on the electronic document DICTATION DATE: 02/25/20 1006 RECORD CUTTER: VILMA 02/25/20 1006 RPT#: [id number] DC DATE: STATUS: ADM IN [facility] [address] [place] [address] END OF REPORT
[2020-02-25] MEDS ORDERED: LEVAQUIN750 MG PO (12:46)
[2020-02-25] MEDS ORDERED: NICODERM CQ1 EAC3 TRANSDERM (12:48)
[2020-02-25] MEDS ORDERED: OXYCODONE HCL5 M1 PO ×2 (12:52→12:54)
--- NOTE | 2020-02-25 14:33 | MORECARE ---
CASE MANAGEMENT DISCHARGE SUMMARY PATIENT: ELIAS BOWEN UNIT: [id number] ADM DATE: 02/04/20 AGE: 49 : 66 SEX: M ROOM/BED: D.2201 AUTHOR: DOLLY COLLADO PHYSICIAN: REFERRING PHYSICIAN: JOB CUNNINGHAM MD DATE OF SERVICE: 02/25/20 Discharge Plan Patient Name: ELIAS BOWEN Facility: [facility]:[place] : 1970 Planned Disposition: Home or Self Care Anticipated Discharge Date: Discharge Date: Expected LOS: Initial Reviewer: [email or web address] Initial Review Date: 02/04/2020 Generated: 02/25/20 3:32 pm Comments DCP- Discharge Planning Updated by [email or web address]: Betzaida Hart on 02/25/20 1:[address] Pineda went and spoke with patient about his bottom being red. Patient has declined any HH from me. DCP- Discharge Planning Updated by [email or web address]: Betzaida Hart on 02/25/20 9:[address] spoke with patient about going home. he does not want home health, he stated that he he does not have the drain anymore. he did c/o red area on his bottom. I asked if he wanted hh for that & he declined that. I asked him about rehab and he just wants to get out of here and go home. His mom will be his paratransit driver home. Declination of HH services signed IMM served and explained. CM to follow and assist with DC planning as needed. DCP- Discharge Planning Updated by [email or web address]: Betzaida Hart on 02/20/20 2:[address] SPOKE WITH PATIENT AND MOTHER ABOUT HH. HIS MOTHER STATED THAT DR CUNNINGHAM SAID THAT HE WOULD RETURN TO INPATIENT REHAB TO FINISH HIS THERAPY BEFORE GOING HOME DCP- Discharge Planning Updated by [email or web address]: Betzaida Hart on 02/18/20 7:[address] Patient Name: ELIAS BOWEN Admission Status: Elective Accout number: [id number] Admission Date: 02-04-2020 : 1970 Admission Diagnosis:UNSPECIFIED ABDOMINAL PAIN Attending: CONTRERAS CUNNINGHAM Current LOS: 14 Anticipated DC Date: Planned Disposition: Home or Self Care Primary Insurance: MEDICARE A & B Discharge Planning Comments: CM met with patient to complete initial dc planning assessment. CM educated patient on the CM role and verbal consent given by patient to complete assessment. Patient lives at home by himself where he was independent with his care. His physical address is [address] [place] [address]. He stated that his mother will be his paratransit driver home. At discharge patient plans to return home and feels this is a safe discharge. CM discussed availability of home health, rehab services, and medical equipment. He said that he has a walker, wheelchair, shower chair, prosthetics, & Cpap at home. He also stated that if he wanted home health he could have, but he does not want it at this time. Patient denied known discharge needs at this time. CM will continue to follow and will assist as needed with dc plans/needs. Hog Confinement System Manager: Betzaida Hart DCPIA - Discharge Planning Initial Assessment Updated by [email or web address]: Betzaida Hart on 02/18/20 8:36 am * Is the patient Alert and Oriented? Yes * How many steps to enter\exit or inside your home? ramp * PCP JOSEPH SMITH * [facility] * Preadmission Environment Home Alone * ADLs Independent * Equipment Bedside Commode CPAP Rolling Walker Shower Chair Walker Wheelchair * List name and contact numbers for known caregivers / representatives who currently or will assist patient after discharge: ENZO GRANDA [phone] * Verbal permission to speak to the caregivers and representatives has been obtained from the patient. N/A * Community resources currently utilized None * Additional services required to return to the preadmission environment? No * Can the patient safely return to the preadmission environment? Yes * Has this patient been hospitalized within the prior 30 days at any hospital? Yes Coverage Notice Reviewer: [id number] Dameon Hart Notice Issued Date-Time: 02/25/2020 9:20 Notice Type: Patient Choice Letter Notice Delivered To: Patient Relationship to Patient: Tennis Director Name: Delivery Method: HAND - Hand Delivered Vanessa Days: Prior Verbal Notification: Recipient Understood Notice: Yes Recipient Signature: Yes Med Rec Note Co-signed by Attending: Coverage Notice Comment: does not want home health Reviewer: [email or web address] Dameon Hart Notice Issued Date-Time: 02/25/2020 9:20 Notice Type: IM Discharge Notice Notice Delivered To: Patient Relationship to Patient: Tennis Director Name: Delivery Method: HAND - Hand Delivered Vanessa Days: Prior Verbal Notification: Recipient Understood Notice: Yes Recipient Signature: Yes Med Rec Note Co-signed by Attending: Coverage Notice Comment: Last DP export: 02/25/20 9:06 a Patient Name: ELIAS BOWEN Page [id number] at 1433 All edits/amendments must be made on the electronic document DICTATION DATE: 02/25/201432 LAB TECHNOLOGIST: VILMA 02/25/201432 RPT#: [id number] DC DATE: STATUS: ADM IN [facility] [address] [place] [address] END OF REPORT
--- NOTE | 2020-02-26 13:01 | MORECARE ---
CASE MANAGEMENT DISCHARGE SUMMARY PATIENT: ELIAS BOWEN UNIT: [id number] ADM DATE: 02/04/20 AGE: 49 : 66 SEX: M ROOM/BED: D.2201 AUTHOR: HEAVENDOC PHYSICIAN: REFERRING PHYSICIAN: JOB CUNNINGHAM MD DATE OF SERVICE: 02/26/20 Discharge Plan Patient Name: ELIAS BOWEN Facility: [facility]:[place] : 1970 Planned Disposition: Home or Self Care Anticipated Discharge Date: Discharge Date: 02/25/2020 Expected LOS: 0 Initial Reviewer: [email or web address] Initial Review Date: 02/04/2020 Generated: 02/26/20 2:01 pm Comments DCP- Discharge Planning Updated by [email or web address]: Betzaida Hart on 02/25/20 1:[address] Pineda went and spoke with patient about his bottom being red. Patient has declined any HH from me. DCP- Discharge Planning Updated by [email or web address]: Betzaida Hart on 02/25/20 9:[address] spoke with patient about going home. he does not want home health, he stated that he he does not have the drain anymore. he did c/o red area on his bottom. I asked if he wanted hh for that & he declined that. I asked him about rehab and he just wants to get out of here and go home. His mom will be his delivery driver/supervisor home. Declination of HH services signed IMM served and explained. CM to follow and assist with DC planning as needed. DCP- Discharge Planning Updated by [email or web address]: Betzaida Hart on 02/20/20 2:[address] SPOKE WITH PATIENT AND MOTHER ABOUT HH. HIS MOTHER STATED THAT DR CUNNINGHAM SAID THAT HE WOULD RETURN TO INPATIENT REHAB TO FINISH HIS THERAPY BEFORE GOING HOME DCP- Discharge Planning Updated by [email or web address]: Betzaida Hart on 02/18/20 7:[address] Patient Name: ELIAS BOWEN Admission Status: Elective Accout number: [id number] Admission Date: 02-04-2020 : 1970 Admission Diagnosis:UNSPECIFIED ABDOMINAL PAIN Attending: CONTRERAS CUNNINGHAM Current LOS: 14 Anticipated DC Date: Planned Disposition: Home or Self Care Primary Insurance: MEDICARE A & B Discharge Planning Comments: CM met with patient to complete initial dc planning assessment. CM educated patient on the CM role and verbal consent given by patient to complete assessment. Patient lives at home by himself where he was independent with his care. His physical address is [address] [place] [address]. He stated that his mother will be his delivery driver/supervisor home. At discharge patient plans to return home and feels this is a safe discharge. CM discussed availability of home health, rehab services, and medical equipment. He said that he has a walker, wheelchair, shower chair, prosthetics, & Cpap at home. He also stated that if he wanted home health he could have, but he does not want it at this time. Patient denied known discharge needs at this time. CM will continue to follow and will assist as needed with dc plans/needs. Senior Mortgage Underwriter: Betzaida Hart DCPIA - Discharge Planning Initial Assessment Updated by [id number]: Betzaida Hart on 02/18/20 8:36 am * Is the patient Alert and Oriented? Yes * How many steps to enter\exit or inside your home? ramp * PCP JOSEPH SMITH * [facility] * Preadmission Environment Home Alone * ADLs Independent * Equipment Bedside Commode CPAP Rolling Walker Shower Chair Walker Wheelchair * List name and contact numbers for known caregivers / representatives who currently or will assist patient after discharge: ENZO GRANDA [phone] * Verbal permission to speak to the caregivers and representatives has been obtained from the patient. N/A * Community resources currently utilized None * Additional services required to return to the preadmission environment? No * Can the patient safely return to the preadmission environment? Yes * Has this patient been hospitalized within the prior 30 days at any hospital? Yes Coverage Notice Reviewer: [email or web address] Dameon Hart Notice Issued Date-Time: 02/25/2020 9:20 Notice Type: Patient Choice Letter Notice Delivered To: Patient Relationship to Patient: Music Manager Name: Delivery Method: HAND - Hand Delivered Vanessa Days: Prior Verbal Notification: Recipient Understood Notice: Yes Recipient Signature: Yes Med Rec Note Co-signed by Attending: Coverage Notice Comment: does not want home health Reviewer: [email or web address] Dameon Hart Notice Issued Date-Time: 02/25/2020 9:20 Notice Type: IM Discharge Notice Notice Delivered To: Patient Relationship to Patient: Music Manager Name: Delivery Method: HAND - Hand Delivered Vanessa Days: Prior Verbal Notification: Recipient Understood Notice: Yes Recipient Signature: Yes Med Rec Note Co-signed by Attending: Coverage Notice Comment: Last DP export: 02/25/20 1:33 p Patient Name: ELIAS BOWEN Page [id number] at 1301 All edits/amendments must be made on the electronic document DICTATION DATE: 02/26/20 1301 HOTEL BAGGAGE HANDLER: VILMA 02/26/20 1301 RPT#: [id number] DC DATE:02/25/20 STATUS: DIS IN [facility] [address] [place] [address] END OF REPORT
== END 2020-02-25 16:24 | disposition home or self-care (01) | DRG 919 ==
LOC: D.MS 14:34
PROVIDERS: Family Medicine; Family Medicine Adult Medicine; Internal Medicine; Radiology Vascular & Interventional Radiology; ADMIT Emergency Medicine; ATTEND Emergency Medicine
PROC: BF181ZZ Fluoroscopy of Pancreatic Ducts using Low Osmolar Contrast (ICD-10-PCS; principal; 2020-02-06 09:55)
PROC: 0F9G30Z Drainage of Pancreas with Drainage Device, Percutaneous Approach (ICD-10-PCS; 2020-02-17)
PROC: 0DB98ZX Excision of Duodenum, Via Natural or Artificial Opening Endoscopic, Diagnostic (ICD-10-PCS; 2020-02-20)
PROC: 0DB68ZX Excision of Stomach, Via Natural or Artificial Opening Endoscopic, Diagnostic (ICD-10-PCS; 2020-02-20)
PROC: 0DB48ZX Excision of Esophagogastric Junction, Via Natural or Artificial Opening Endoscopic, Diagnostic (ICD-10-PCS; 2020-02-20)
DX: T85.79XA Infection and inflammatory reaction due to other internal prosthetic devices, implants and grafts, initial encounter (principal); K85.90 Acute pancreatitis without necrosis or infection, unspecified; K86.3 Pseudocyst of pancreas; E87.1 Hypo-osmolality and hyponatremia; D64.9 Anemia, unspecified; R51 Headache; I10 Essential (primary) hypertension; F41.8 Other specified anxiety disorders; F12.90 Cannabis use, unspecified, uncomplicated; Y84.9 Medical procedure, unspecified as the cause of abnormal reaction of the patient, or of later complication, without mention of misadventure at the time of the procedure; F12.988 Cannabis use, unspecified with other cannabis-induced disorder; K31.84 Gastroparesis; K44.9 Diaphragmatic hernia without obstruction or gangrene; K21.0 Gastro-esophageal reflux disease with esophagitis; Z87.891 Personal history of nicotine dependence